=== PATIENT | female | born 1935 | race Caucasian/White ===

== ENCOUNTER 2017-12-06 20:28 | Emergency (ER) | payer MEDICARE, OTHER, BC ==
[~2017-12-06 20:28] MED LIST: Iopamidol 370 76% 125 ML VIAL FS ONE
--- NOTE | 2017-12-06 21:04 | RAD ---
RADIOGRAPH CHEST 2 VIEWS: 12/06/17 HISTORY: 82-year-old female with acute chest pain. FINDINGS: There is no air space density, pulmonary edema, pleural effusion, pneumothorax, or cardiomegaly. IMPRESSION: No acute cardiopulmonary findings. geo [] POS: [facility]
[2017-12-06 21:09] LABS: ALT (SGPT) 18 U/L (8-55); AST (SGOT) 14 U/L (5-34); Albumin 3.9 g/dL (3.4-4.8); Alkaline Phosphatase 93 U/L (40-150); Anion Gap 16 mmol/L (10-20); BUN (Urea Nitrogen) 28 mg/dL (9.8-20.1); Bilirubin, Total 0.3 mg/dL (0.2-1.2); CK (CPK) 103 U/L (29-168); Calc. Creatinine Clearance 0 mL/min (70-130); Calcium 9.9 mg/dL (7.8-10.44); Carbon Dioxide 23 mmol/L (23-31); Chloride 105 mmol/L (98-107); Estimated GFR-MDRD 67; Globulin 3.1 g/dL (2.4-3.5); Glucose 99 mg/dL (83-110); Potassium 4.6 mmol/L (3.5-5.1); Sodium 139 mmol/L (136-145)
[2017-12-06 21:10] LABS: CKMB 2.1 ng/mL (0-6.6); Troponin I Less than 0.010 ng/mL (< 0.028)
[2017-12-06 21:11] LABS: #Basophils 0.1 thou/uL (0.0-0.2); #Eosinphils 0.4 thou/uL (0.0-0.7); #Lymphocytes 2.7 thou/uL (1.20-3.40); #Monocytes 0.9 thou/uL (0.11-0.59); #Neutrophils 5.4 thou/uL (1.40-6.50); %Basophils 0.7 % (0.0-1.0); %Eosinophils 4.4 % (0.0-10.0); %Lymphocytes 28.3 % (21.0-51.0); %Monocytes 9.5 % (0.0-10.0); Hemoglobin 12.4 g/dL (12.0-16.0); Mean Corpuscular HGB CONC 32.7 g/dL (32.0-36.0); Mean Corpuscular Hemoglobin 30.2 pg (27.0-31.0); Mean Corpuscular Volume 92.3 fL (78.0-98.0); Mean Platelet Volume 9.9 fL (7.4-10.4); Platelet Count 158 thou/uL (130-400); RBC Distribution Width 12.8 % (11.5-14.5); White Blood Cell (WBC) Count 9.4 thou/uL (4.8-10.8)
[2017-12-06] MEDS ORDERED: Acetaminophen 500 MG TAB ONE (21:14)
--- NOTE | 2017-12-06 22:43 | CT ---
CTA THORAX WITH CONTRAST: DATE: 12/06/17 TIME: 10:11 p.m. (Computed Tomographic Angiography, chest(noncoronary) with contrast material, and image postprocessin g) (PE protocol) HISTORY: 82-year-old female with elevated D-dimer and dyspnea. TECHNIQUE: IV injection of iodinated contrast: Injected. Scan acquisition timing attempted to coincide with iodinated contrast bolus reaching maximal density in pulmonary arteries. 3D MIP reconstructions. FINDINGS: No thoracic aortic aneurysm. No pulmonary thromboembolism identified. Peripheral branches are somewha t difficult to evaluate because of breathing motion artifact. Diffuse mild interstitial densities anuj aterally, especially in the lower lobes, are at least in part due to patient breathing motion artifac t. No consolidation, pleural effusion, pneumothorax, or pulmonary mass. No thoracic aortic dissection , aneurysm, or rupture. No mediastinal or hilar lymphadenopathy. Flowing bridging osteophytes through out all levels of the thoracic spine. Left renal cyst. IMPRESSION: 1. No evidence of pulmonary thromboembolism. 2. DISH (diffuse idiopathic skeletal hyperostosis). geo[] POS: [facility]
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
[2017-12-06 23:22] LABS: CKMB 1.8 ng/mL (0-6.6); Troponin I Less than 0.010 ng/mL (< 0.028)
== END 2017-12-06 23:58 | disposition home or self-care (01) ==
LOC: MADERS 20:28
DX: R07.89 Other chest pain (principal); R51 Headache; R20.2 Paresthesia of skin; I10 Essential (primary) hypertension
CPT/HCPCS: 36415; 70450; 71046; 71275; 80053; 82550; 82553; 83880; 84484; 85025; 85379; 93005

== ENCOUNTER 2018-03-03 20:26 | Emergency (ER) | payer MEDICARE, OTHER, BC ==
[2018-03-03] MEDS ORDERED: Amlodipine 5 MG TAB ONE (20:42)
[2018-03-03] MEDS ORDERED: Lisinopril 10 MG TAB ONE (20:42)
== END 2018-03-03 21:20 | disposition home or self-care (01) ==
LOC: MADERS 20:26
DX: I10 Essential (primary) hypertension (principal); Z79.899 Other long term (current) drug therapy
CPT/HCPCS: 99283

== ENCOUNTER 2018-03-08 11:45 | Outpatient (CLI) | payer MEDICARE, OTHER, BC ==
--- NOTE | 2018-03-08 13:34 | RAD ---
CHEST TWO VIEWS: 03/08/2018 HISTORY: Wheezing. Respiratory distress. COMPARISON: 12/06/2017 TECHNIQUE: PA and lateral views of the chest are obtained. FINDINGS: Two views of the chest demonstrate mild cardiomegaly and pulmonary vascular congestion. No evidence of effusions, pneumonia, or pneumothorax is seen. IMPRESSION: Mild pulmonary vascular congestion; otherwise, unremarkable two views chest. POS: [facility]
== END 2018-03-08 11:46 | disposition home or self-care (01) ==
LOC: MADRAD 11:45
PROVIDERS: ATTEND Physician Assistant
DX: R06.2 Wheezing (principal); R09.89 Other specified symptoms and signs involving the circulatory and respiratory systems
CPT/HCPCS: 71046

== ENCOUNTER 2018-03-09 11:23 | Emergency (ER) | payer MEDICARE, OTHER, BC ==
[~2018-03-09 11:23] MED LIST changes: +Sodium Chloride 0.9% 100 ML BAG ONE
[2018-03-09 12:24] LABS: #Basophils 0.1 thou/uL (0.0-0.2); #Eosinphils 0.4 thou/uL (0.0-0.7); #Lymphocytes 1.4 thou/uL (1.20-3.40); #Monocytes 1.3 thou/uL (0.11-0.59); #Neutrophils 10.1 thou/uL (1.40-6.50); %Basophils 0.7 % (0.0-1.0); %Lymphocytes 10.2 % (21.0-51.0); %Monocytes 10.1 % (0.0-10.0); %Neutrophils 75.9 % (42.0-75.0); Hemoglobin 13.3 g/dL (12.0-16.0); Mean Corpuscular HGB CONC 32.5 g/dL (32.0-36.0); Mean Corpuscular Hemoglobin 30.7 pg (27.0-31.0); Mean Corpuscular Volume 94.6 fL (78.0-98.0); Platelet Count 216 thou/uL (130-400); RBC Distribution Width 12.4 % (11.5-14.5); Red Blood Cell (RBC) Count 4.32 mill/uL (4.20-5.40); White Blood Cell (WBC) Count 13.3 thou/uL (4.8-10.8)
--- NOTE | 2018-03-09 12:29 | RAD ---
PORTABLE AP CHEST XRAY: DATE: 03/09/18. HISTORY: Dyspnea. COMPARISON: 03/08/18. FINDINGS: There is suboptimal evaluation of the lung bases due to overlying soft tissue density in the techniqu e of the exam. However, the lungs appear grossly clear. Cardiac silhouette and pulmonary vasculatur e are within normal limits for the portable technique of the study. There has been no interval medrano e from the prior exam. IMPRESSION: No acute cardiopulmonary process. POS: [facility]
[2018-03-09 12:39] LABS: ALT (SGPT) 22 U/L (8-55); AST (SGOT) 18 U/L (5-34); Alkaline Phosphatase 94 U/L (40-150); Anion Gap 16 mmol/L (10-20); BUN (Urea Nitrogen) 35 mg/dL (9.8-20.1); Bilirubin, Total 0.4 mg/dL (0.2-1.2); CK (CPK) 77 U/L (29-168); Calc. Creatinine Clearance 0 mL/min (70-130); Carbon Dioxide 22 mmol/L (23-31); Chloride 105 mmol/L (98-107); Estimated GFR-MDRD 46; Globulin 3.1 g/dL (2.4-3.5); Glucose 122 mg/dL (83-110); Potassium 4.9 mmol/L (3.5-5.1); Protein, Total 7.1 g/dL (6.0-8.3); Sodium 138 mmol/L (136-145)
[2018-03-09 12:40] LABS: CKMB 1.3 ng/mL (0-6.6); Troponin I 0.011 ng/mL (< 0.028)
--- NOTE | 2018-03-09 14:21 | CT ---
CT ANGIOGRAM NECK WITH IV CONTRAST AND 3D RECONSTRUCTIONS: DATE: 03/09/18. HISTORY: Dyspnea, cough, shortness of breath. COMPARISON: 12/06/17. FINDINGS: No filling defects are seen in the pulmonary arteries to suggest a pulmonary embolus. Vascular calcifications are seen in the coronary arteries as well as involving the thoracic aorta. T he thoracic aorta is normal in caliber without evidence of an aortic dissection. Mediastinal structures have a normal appearance. No lymphadenopathy is seen. There is a patchy area of focal consolidation seen within the left lower lobe which may be related to focal area of pneumonia/pneumonitis. The lungs are otherwise clear. Superior pole left renal cyst is again seen and incompletely imaged on the current study. Subcentime ter too small to characterize hypodense lesions are also again seen in the superior pole of each kidn ey. Degenerative changes are again present in the spine with bridging osteophytes seen at all levels of t he thoracic spine. IMPRESSION: 1. Focal area of consolidation in the left lower lobe. While this could be related to an area of ro unded atelectasis, findings are worrisome for either focal area of pneumonia/pneumonitis, and followu p to resolution is recommended. 2. No CT evidence of a pulmonary embolus. There is a filling defect seen within the IVC at the leve l of the renal veins, but this is likely attributable to mixing artifact and is incompletely imaged o r evaluating. 3. Small hiatal hernia. 4. Hypodense superior pole bilateral renal lesions incompletely imaged or evaluated but stable from prior study and likely related to cysts. POS: [facility]
== END 2018-03-09 15:13 | disposition home or self-care (01) ==
LOC: MADERS 11:23
DX: J18.9 Pneumonia, unspecified organism (principal); I10 Essential (primary) hypertension; Z79.899 Other long term (current) drug therapy
CPT/HCPCS: 71045; 71275; 80053; 82550; 82553; 83880; 84484; 85025; 85379; 87804; 93005; J7050

== ENCOUNTER 2019-04-14 19:43 | Inpatient (IN) | payer MEDICARE, OTHER ==
[2019-04-14] MEDS ORDERED: Calcium Carbonate 500 MG ChewTAB PO PRN (20:46)
[2019-04-14] MEDS: Ibuprofen 600 MG TAB PO PRN (21:02)
[2019-04-14] MEDS: Cyclobenzaprine 10 MG TAB PO PRN (21:02)
[2019-04-14] MEDS: Senokot S 8.6-50 MG TAB PO SCH (21:02)
[2019-04-14] MEDS: Gabapentin 300 MG CAP PO SCH (21:03)
[2019-04-14] MEDS: guaiFENesin/Codeine Phosphate 100 mg/10 mg 5 ml UD Cup PO PRN (22:28)
[2019-04-14] MEDS ORDERED: Acetylcysteine 20% 200 MG/ML 30 ML VIAL ONE ×2 (23:17)
[2019-04-14] MEDS: Acetylcysteine 20% 200 MG/ML 30 ML VIAL INH SCH (23:43)
[2019-04-14] MEDS: Acetaminophen 325 MG TAB PO SCH (23:44)
[2019-04-15] MEDS: Ibuprofen 600 MG TAB PO PRN (03:27)
[2019-04-15] MEDS: Acetaminophen 325 MG TAB PO SCH ×4 (05:18→23:04)
[2019-04-15] MEDS ORDERED: Acetylcysteine 20% 200 MG/ML 30 ML VIAL ONE ×2 (05:50)
[2019-04-15] MEDS: Acetylcysteine 20% 200 MG/ML 30 ML VIAL INH SCH ×2 (05:57→12:34)
[2019-04-15] MEDS: Polyethylene Glycol 3350 17 GM Packet PO SCH (09:36)
[2019-04-15] MEDS: Lisinopril 10 MG TAB PO SCH (09:37)
[2019-04-15] MEDS: Senokot S 8.6-50 MG TAB PO SCH ×2 (09:38→20:47)
[2019-04-15] MEDS: Aspirin 81 mg Enteric Coated Tablet PO SCH (09:38)
[2019-04-15] MEDS: Gabapentin 300 MG CAP PO SCH ×2 (09:38→20:47)
[2019-04-15] MEDS ORDERED: Ondansetron ODT 4 MG TAB PO PRN (13:56)
[2019-04-15] MEDS: Nystatin Powder 15 GM BOT TOP PRN (17:31)
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
[2019-04-15] MEDS: guaiFENesin/Codeine Phosphate 100 mg/10 mg 5 ml UD Cup PO PRN (23:10)
[2019-04-16] MEDS: Acetaminophen 325 MG TAB PO SCH ×3 (05:05→17:27)
[2019-04-16] MEDS: Polyethylene Glycol 3350 17 GM Packet PO SCH (08:47)
[2019-04-16] MEDS: Aspirin 81 mg Enteric Coated Tablet PO SCH (08:48)
[2019-04-16] MEDS: Gabapentin 300 MG CAP PO SCH ×2 (08:48→20:48)
[2019-04-16] MEDS: Senokot S 8.6-50 MG TAB PO SCH ×2 (08:48→20:48)
[2019-04-16] MEDS: Lisinopril 10 MG TAB PO SCH (08:48)
[2019-04-16] MEDS: guaiFENesin/Codeine Phosphate 100 mg/10 mg 5 ml UD Cup PO PRN ×2 (09:10→20:49)
[2019-04-16] MEDS: Ibuprofen 600 MG TAB PO PRN (20:49)
[2019-04-17] MEDS: Acetaminophen 325 MG TAB PO SCH ×5 (00:20→23:11)
[2019-04-17] MEDS: Lisinopril 10 MG TAB PO SCH (08:28)
[2019-04-17] MEDS: Senokot S 8.6-50 MG TAB PO SCH ×2 (08:28→20:54)
[2019-04-17] MEDS: Gabapentin 300 MG CAP PO SCH ×2 (08:28→20:54)
[2019-04-17] MEDS: Polyethylene Glycol 3350 17 GM Packet PO SCH (08:29)
[2019-04-17] MEDS: Aspirin 81 mg Enteric Coated Tablet PO SCH (08:29)
[2019-04-17 10:27] VITALS: BMI 42.8
[2019-04-17] MEDS: Nystatin 500,000 UNITS/5 ML UDCUP SSW SCH ×3 (12:58→20:55)
[2019-04-17] MEDS: Cyclobenzaprine 10 MG TAB PO PRN (23:12)
[2019-04-18] MEDS: Ibuprofen 600 MG TAB PO PRN (00:45)
[2019-04-18] MEDS: Acetaminophen 325 MG TAB PO SCH ×3 (05:25→17:43)
[2019-04-18] MEDS: Polyethylene Glycol 3350 17 GM Packet PO SCH (08:40)
[2019-04-18] MEDS: Aspirin 81 mg Enteric Coated Tablet PO SCH (08:41)
[2019-04-18] MEDS: Gabapentin 300 MG CAP PO SCH ×2 (08:41→21:29)
[2019-04-18] MEDS: Lisinopril 10 MG TAB PO SCH (08:41)
[2019-04-18] MEDS: Senokot S 8.6-50 MG TAB PO SCH ×2 (08:41→21:30)
[2019-04-18] MEDS: Nystatin 500,000 UNITS/5 ML UDCUP SSW SCH ×4 (08:44→21:30)
[2019-04-18] MEDS: traMADol HCl 50 MG TAB PO PRN (21:32)
[2019-04-19] MEDS: Acetaminophen 325 MG TAB PO SCH ×3 (01:56→09:14)
[2019-04-19] MEDS: guaiFENesin/Codeine Phosphate 100 mg/10 mg 5 ml UD Cup PO PRN ×2 (02:35→21:53)
[2019-04-19] MEDS: traMADol HCl 50 MG TAB PO PRN ×3 (05:25→21:53)
--- NOTE | 2019-04-19 07:52 | RAD ---
XR Chest 1 View Portable History: Pneumonia Comparison: Chest radiograph April 10, 2019 Findings: Improved aeration right lower lobe. Heart size upper limits of normal. No pneumothorax. No significant effusion. Impression: Improved aeration right lower lobe pneumonia.
[2019-04-19] MEDS: Gabapentin 300 MG CAP PO SCH ×2 (09:13→20:34)
[2019-04-19] MEDS: Lisinopril 10 MG TAB PO SCH (09:13)
[2019-04-19] MEDS: Multivitamin W/ Minerals 1 TAB PO SCH (09:13)
[2019-04-19] MEDS: Nystatin 500,000 UNITS/5 ML UDCUP SSW SCH ×4 (09:13→20:34)
[2019-04-19] MEDS: Aspirin 81 mg Enteric Coated Tablet PO SCH (09:13)
[2019-04-19] MEDS: Senokot S 8.6-50 MG TAB PO SCH ×2 (09:15→20:34)
[2019-04-19] MEDS: Polyethylene Glycol 3350 17 GM Packet PO SCH (09:15)
[2019-04-19] MEDS ORDERED: Acetaminophen 325 MG TAB PO PRN (13:09)
[2019-04-20] MEDS: Ibuprofen 600 MG TAB PO PRN ×2 (01:12→13:13)
[2019-04-20] MEDS: Cepastat Lozenges 1 LOZ PO PRN ×2 (01:13→13:13)
[2019-04-20] MEDS: Multivitamin W/ Minerals 1 TAB PO SCH (08:15)
[2019-04-20] MEDS: Nystatin 500,000 UNITS/5 ML UDCUP SSW SCH ×4 (08:15→20:55)
[2019-04-20] MEDS: Lisinopril 10 MG TAB PO SCH (08:15)
[2019-04-20] MEDS: Polyethylene Glycol 3350 17 GM Packet PO SCH (08:15)
[2019-04-20] MEDS: Gabapentin 300 MG CAP PO SCH ×2 (08:16→20:55)
[2019-04-20] MEDS: Aspirin 81 mg Enteric Coated Tablet PO SCH (08:16)
[2019-04-20] MEDS: Senokot S 8.6-50 MG TAB PO SCH ×2 (08:16→20:55)
[2019-04-20] MEDS: traMADol HCl 50 MG TAB PO PRN (20:55)
[2019-04-21] MEDS: guaiFENesin/Codeine Phosphate 100 mg/10 mg 5 ml UD Cup PO PRN (01:07)
[2019-04-21] MEDS: Lisinopril 10 MG TAB PO SCH (09:49)
[2019-04-21] MEDS: Multivitamin W/ Minerals 1 TAB PO SCH (09:49)
[2019-04-21] MEDS: Polyethylene Glycol 3350 17 GM Packet PO SCH (09:50)
[2019-04-21] MEDS: Senokot S 8.6-50 MG TAB PO SCH ×2 (09:50→20:37)
[2019-04-21] MEDS: Gabapentin 300 MG CAP PO SCH ×2 (09:50→20:37)
[2019-04-21] MEDS: Aspirin 81 mg Enteric Coated Tablet PO SCH (09:50)
[2019-04-21] MEDS: Nystatin 500,000 UNITS/5 ML UDCUP SSW SCH ×4 (09:50→20:37)
[2019-04-21] MEDS: Ibuprofen 600 MG TAB PO PRN (12:31)
[2019-04-21] MEDS: Nystatin Powder 15 GM BOT TOP PRN (13:43)
[2019-04-22] MEDS: traMADol HCl 50 MG TAB PO PRN (01:08)
[2019-04-22] MEDS: Cyclobenzaprine 10 MG TAB PO PRN ×2 (01:08→20:10)
[2019-04-22] MEDS: Ibuprofen 600 MG TAB PO PRN (02:18)
[2019-04-22] MEDS: Aspirin 81 mg Enteric Coated Tablet PO SCH (08:18)
[2019-04-22] MEDS: Multivitamin W/ Minerals 1 TAB PO SCH (08:18)
[2019-04-22] MEDS: Lisinopril 10 MG TAB PO SCH (08:18)
[2019-04-22] MEDS: Nystatin 500,000 UNITS/5 ML UDCUP SSW SCH ×4 (08:18→20:08)
[2019-04-22] MEDS: Senokot S 8.6-50 MG TAB PO SCH ×2 (08:18→20:07)
[2019-04-22] MEDS: Gabapentin 300 MG CAP PO SCH ×2 (08:19→20:08)
[2019-04-22] MEDS: Polyethylene Glycol 3350 17 GM Packet PO SCH (08:19)
[2019-04-22] MEDS ORDERED: Polyethylene Glycol 3350 17 GM Packet PO PRN (21:34)
[2019-04-23] MEDS: Nystatin 500,000 UNITS/5 ML UDCUP SSW SCH ×4 (08:49→20:59)
[2019-04-23] MEDS: Ibuprofen 600 MG TAB PO PRN (08:49)
[2019-04-23] MEDS: Lisinopril 10 MG TAB PO SCH (08:49)
[2019-04-23] MEDS: Multivitamin W/ Minerals 1 TAB PO SCH (08:49)
[2019-04-23] MEDS: Gabapentin 300 MG CAP PO SCH ×2 (08:49→20:59)
[2019-04-23] MEDS: Aspirin 81 mg Enteric Coated Tablet PO SCH (08:50)
[2019-04-23] MEDS: traMADol HCl 50 MG TAB PO PRN (21:05)
[2019-04-24] MEDS: Cyclobenzaprine 10 MG TAB PO PRN (00:42)
[2019-04-24] MEDS: Ibuprofen 600 MG TAB PO PRN ×3 (00:42→22:03)
[2019-04-24] MEDS: traMADol HCl 50 MG TAB PO PRN (03:21)
[2019-04-24] MEDS: Gabapentin 300 MG CAP PO SCH ×2 (08:27→22:03)
[2019-04-24] MEDS: Lisinopril 10 MG TAB PO SCH (08:27)
[2019-04-24] MEDS: Multivitamin W/ Minerals 1 TAB PO SCH (08:27)
[2019-04-24] MEDS: Nystatin 500,000 UNITS/5 ML UDCUP SSW SCH ×5 (08:27→22:06)
[2019-04-24] MEDS: Aspirin 81 mg Enteric Coated Tablet PO SCH (08:27)
[2019-04-25] MEDS: Gabapentin 300 MG CAP PO SCH ×2 (08:13→21:26)
[2019-04-25] MEDS: Aspirin 81 mg Enteric Coated Tablet PO SCH (08:13)
[2019-04-25] MEDS: Lisinopril 10 MG TAB PO SCH (08:13)
[2019-04-25] MEDS: Multivitamin W/ Minerals 1 TAB PO SCH (08:14)
[2019-04-25] MEDS: Nystatin 500,000 UNITS/5 ML UDCUP SSW SCH (08:14)
[2019-04-25] MEDS: Nystatin Powder 15 GM BOT TOP PRN (14:17)
[2019-04-25] MEDS: Ibuprofen 600 MG TAB PO PRN (21:26)
[2019-04-25] MEDS: Cyclobenzaprine 10 MG TAB PO PRN (21:26)
[2019-04-26] MEDS: traMADol HCl 50 MG TAB PO PRN ×2 (01:58→21:33)
[2019-04-26] MEDS: Lisinopril 10 MG TAB PO SCH (08:36)
[2019-04-26] MEDS: Multivitamin W/ Minerals 1 TAB PO SCH (08:36)
[2019-04-26] MEDS: Aspirin 81 mg Enteric Coated Tablet PO SCH (08:36)
[2019-04-26] MEDS: Gabapentin 300 MG CAP PO SCH ×2 (08:36→21:33)
[2019-04-27] MEDS: Multivitamin W/ Minerals 1 TAB PO SCH (08:35)
[2019-04-27] MEDS: Lisinopril 10 MG TAB PO SCH (08:35)
[2019-04-27] MEDS: Aspirin 81 mg Enteric Coated Tablet PO SCH (08:35)
[2019-04-27] MEDS: Gabapentin 300 MG CAP PO SCH ×2 (08:36→21:02)
[2019-04-27] MEDS: Ibuprofen 600 MG TAB PO PRN (21:02)
[2019-04-28] MEDS: Lisinopril 10 MG TAB PO SCH (10:07)
[2019-04-28] MEDS: Multivitamin W/ Minerals 1 TAB PO SCH (10:07)
[2019-04-28] MEDS: Aspirin 81 mg Enteric Coated Tablet PO SCH (10:07)
[2019-04-28] MEDS: Gabapentin 300 MG CAP PO SCH ×2 (10:08→20:25)
[2019-04-29 07:06] VITALS: TEMP 96.9
[2019-04-29 10:36] VITALS: BP 149/67
[2019-04-29] MEDS: Aspirin 81 mg Enteric Coated Tablet PO SCH (10:36)
[2019-04-29] MEDS: Gabapentin 300 MG CAP PO SCH (10:36)
[2019-04-29] MEDS: Multivitamin W/ Minerals 1 TAB PO SCH (10:36)
[2019-04-29] MEDS: Lisinopril 10 MG TAB PO SCH (10:36)
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
== END 2019-04-29 11:55 | disposition home or self-care (01) | DRG 947 ==
LOC: UNDOADMIN 19:43 → MADMS 19:43
PROVIDERS: ADMIT Family Medicine; ATTEND Family Medicine
DX: R53.81 Other malaise (principal); J69.0 Pneumonitis due to inhalation of food and vomit; B37.0 Candidal stomatitis; I25.10 Atherosclerotic heart disease of native coronary artery without angina pectoris; I10 Essential (primary) hypertension; Z95.5 Presence of coronary angioplasty implant and graft; Z90.49 Acquired absence of other specified parts of digestive tract; Z96.653 Presence of artificial knee joint, bilateral; Z79.899 Other long term (current) drug therapy; Z88.0 Allergy status to penicillin; S32.030D Wedge compression fracture of third lumbar vertebra, subsequent encounter for fracture with routine healing; W01.198D Fall on same level from slipping, tripping and stumbling with subsequent striking against other object, subsequent encounter
CPT/HCPCS: 71045; 94640; J7608; J7620

== ENCOUNTER 2019-06-05 09:39 | Outpatient (CLI) | payer MEDICARE, OTHER ==
--- NOTE | 2019-06-05 10:01 | RAD ---
XR Lumbar Spine 2 Or 3 View: 06/05/2019 9:44 AM L3 vertebral body fracture COMPARISON: Lumbar spine CT dated 04/07/2019 FINDINGS: Fracture: The known anterior superior vertebral body fracture of L3 appears stable in position. The f racture lucency is less prominent likely indicative of some interval healing. Alignment: Grade 1 anterolisthesis of L4 on L5 with retrolisthesis of L2 on L3 and L1 and L2 is stabl e. Degenerative Change: Severe spondylosis of the lumbar spine is stable Soft tissues: Surgical clips in the right upper quadrant are stable. IMPRESSION: Progressive healing without evidence of displacement involving the right anterior lateral superior vertebral body fracture of L3.
== END 2019-06-05 09:40 | disposition home or self-care (01) ==
LOC: MADRAD 09:39
PROVIDERS: ATTEND Neurological Surgery
DX: S32.039D Unspecified fracture of third lumbar vertebra, subsequent encounter for fracture with routine healing (principal)
CPT/HCPCS: 72100

== ENCOUNTER 2020-02-11 08:58 | Emergency (ER) | payer MEDICARE, OTHER ==
--- NOTE | 2020-02-11 09:37 | RAD ---
Exam: Chest one view HISTORY:Chest pain Comparison: 04/19/2019 FINDINGS: Cardiac silhouette:Cardiomegaly Aorta: Unremarkable Pulmonary vessels: Normal Costophrenic angles: Clear LUNGS: No masses or consolidation. Pneumothorax: None Osseous abnormalities: None IMPRESSION: No acute cardiopulmonary process.
[2020-02-11 09:40] LABS: #Basophils 0.1 thou/uL (0.0-0.2); #Eosinphils 0.3 thou/uL (0.0-0.7); #Monocytes 0.8 thou/uL (0.11-0.59); #Neutrophils 4.6 thou/uL (1.40-6.50); %Basophils 0.9 % (0.0-1.0); %Eosinophils 4.4 % (0.0-10.0); %Lymphocytes 25.9 % (21.0-51.0); %Monocytes 10.7 % (0.0-10.0); %Neutrophils 58.2 % (42.0-75.0); Hemoglobin 12.6 g/dL (12.0-16.0); MDiff Complete? YES; Manual Diff?? NO; Mean Corpuscular HGB CONC 29.9 g/dL (32.0-36.0); Mean Corpuscular Hemoglobin 28.5 pg (27.0-31.0); Mean Corpuscular Volume 95.3 fL (78.0-98.0); Mean Platelet Volume 9.5 fL (7.4-10.4); Platelet Count 196 thou/uL (130-400); RBC Distribution Width 14.9 % (11.5-14.5); Red Blood Cell (RBC) Count 4.43 mill/uL (4.20-5.40); White Blood Cell (WBC) Count 7.8 thou/uL (4.8-10.8)
[2020-02-11 09:52] LABS: ALT (SGPT) 26 U/L (8-55); AST (SGOT) 17 U/L (5-34); Albumin 3.8 g/dL (3.4-4.8); Alkaline Phosphatase 98 U/L (40-110); Anion Gap 14 mmol/L (10-20); BUN (Urea Nitrogen) 30 mg/dL (9.8-20.1); Bilirubin, Total 0.3 mg/dL (0.2-1.2); CK (CPK) 111 U/L (29-168); Calc. Creatinine Clearance 0 mL/min (70-130); Calcium 9.6 mg/dL (7.8-10.44); Carbon Dioxide 25 mmol/L (23-31); Chloride 107 mmol/L (98-107); Estimated GFR-MDRD 48; Globulin 3.3 g/dL (2.4-3.5); Glucose 107 mg/dL (83-110); Lipase 44 U/L (8-78); Potassium 4.9 mmol/L (3.5-5.1); Protein, Total 7.1 g/dL (6.0-8.3); Sodium 141 mmol/L (136-145)
[2020-02-11] MEDS ORDERED: Nitroglycerin 2% Ointment 1 INCH/1 GM Packet ONE (10:30)
== END 2020-02-11 13:20 | disposition short-term general hospital (02) ==
LOC: MADERS 08:58
DX: R07.9 Chest pain, unspecified (principal); I49.3 Ventricular premature depolarization; I25.10 Atherosclerotic heart disease of native coronary artery without angina pectoris; I10 Essential (primary) hypertension; Z79.82 Long term (current) use of aspirin; Z79.899 Other long term (current) drug therapy
CPT/HCPCS: 36415; 71045; 80053; 82550; 83690; 84484; 85025; 93005

== ENCOUNTER 2020-03-06 18:55 | Emergency (ER) | payer MEDICARE, OTHER, BC ==
[2020-03-06] MEDS ORDERED: predniSONE 20 MG TAB ONE (20:09)
[2020-03-06] MEDS ORDERED: diphenhydrAMINE 25 MG CAP ONE (20:09)
== END 2020-03-06 21:21 | disposition home or self-care (01) ==
LOC: MADERS 18:55
DX: T78.40XA Allergy, unspecified, initial encounter (principal); I73.9 Peripheral vascular disease, unspecified; I25.10 Atherosclerotic heart disease of native coronary artery without angina pectoris; I10 Essential (primary) hypertension; Z79.82 Long term (current) use of aspirin; Z79.899 Other long term (current) drug therapy
CPT/HCPCS: 99282; J7512; Q0163

== ENCOUNTER 2021-07-07 18:05 | Emergency (ER) | payer BC, OTHER ==
[2021-07-07 19:45] LABS: ALT (SGPT) 23 U/L (8-55); AST (SGOT) 19 U/L (5-34); Alkaline Phosphatase 81 U/L (40-110); Anion Gap 15 mmol/L (10-20); BUN (Urea Nitrogen) 47 mg/dL (9.8-20.1); Bilirubin, Total 0.3 mg/dL (0.2-1.2); Calc. Creatinine Clearance 0 mL/min (70-130); Carbon Dioxide 25 mmol/L (23-31); Chloride 106 mmol/L (98-107); Globulin 3.6 g/dL (2.4-3.5); Glucose 96 mg/dL (83-110); Potassium 4.9 mmol/L (3.5-5.1); Protein, Total 7.6 g/dL (5.8-8.1); Sodium 141 mmol/L (136-145)
[2021-07-07 19:59] LABS: #Basophils 0.1 thou/uL (0.0-0.2); #Eosinphils 0.3 thou/uL (0.0-0.7); #Lymphocytes 2.2 thou/uL (1.20-3.40); #Monocytes 0.7 thou/uL (0.11-0.59); #Neutrophils 5.4 thou/uL (1.40-6.50); %Basophils 0.7 % (0.0-1.0); %Eosinophils 3.7 % (0.0-10.0); %Lymphocytes 25.2 % (21.0-51.0); %Monocytes 8.5 % (0.0-10.0); %Neutrophils 61.8 % (42.0-75.0); Hemoglobin 13.9 g/dL (12.0-16.0); Mean Corpuscular HGB CONC 30.5 g/dL (32.0-36.0); Mean Corpuscular Hemoglobin 30.6 pg (27.0-31.0); Mean Corpuscular Volume 100.3 fL (78.0-98.0); Mean Platelet Volume 8.5 fL (7.4-10.4); Platelet Count 158 thou/uL (130-400); RBC Distribution Width 13.6 % (11.5-14.5); Red Blood Cell (RBC) Count 4.53 mill/uL (4.20-5.40); White Blood Cell (WBC) Count 8.7 thou/uL (4.8-10.8)
[2021-07-08 14:42] LABS: SARS-CoV-2 PCR by NAA Not Detected (NotDetected)
== END 2021-07-07 21:07 | disposition home or self-care (01) ==
LOC: MADERS 18:05
DX: R51.9 Headache, unspecified (principal); I10 Essential (primary) hypertension; Z20.822 Contact with and (suspected) exposure to COVID-19; Z79.82 Long term (current) use of aspirin; Z79.899 Other long term (current) drug therapy
CPT/HCPCS: 36415; 71045; 80053; 84484; 85025; 87804; 93005; U0003; U0005

== ENCOUNTER 2022-05-14 17:32 | Emergency (ER) | payer MEDICARE, BC ==
[2022-05-14] MEDS ORDERED: traMADol HCl 50 MG TAB ONE (19:22)
[2022-05-14] MEDS ORDERED: Morphine 4 MG/ML VIAL ONE (19:22)
[2022-05-14 19:47] LABS: #Basophils 0.1 thou/uL (0.0-0.2); #Eosinphils 0.1 thou/uL (0.0-0.7); #Lymphocytes 1.7 thou/uL (1.20-3.40); #Monocytes 0.9 thou/uL (0.11-0.59); #Neutrophils 11.2 thou/uL (1.40-6.50); %Basophils 0.5 % (0.0-1.0); %Eosinophils 0.7 % (0.0-10.0); %Lymphocytes 12.1 % (21.0-51.0); %Monocytes 6.5 % (0.0-10.0); %Neutrophils 80.2 % (42.0-75.0); Hemoglobin 13.3 g/dL (12.0-16.0); Mean Corpuscular HGB CONC 32.1 g/dL (32.0-36.0); Mean Corpuscular Hemoglobin 31.7 pg (27.0-31.0); Mean Corpuscular Volume 98.7 fl (78.0-98.0); Mean Platelet Volume 9.6 fL (7.4-10.4); Platelet Count 164 10x3/uL (130-400); RBC Distribution Width 12.8 % (11.5-14.5); Red Blood Cell (RBC) Count 4.21 mill/uL (4.20-5.40)
[2022-05-14 20:08] LABS: ALT (SGPT) 17 U/L (8-55); AST (SGOT) 19 U/L (5-34); Albumin 3.8 g/dL (3.4-4.8); Alkaline Phosphatase 84 U/L (40-110); Anion Gap 16 mmol/L (10-20); BUN (Urea Nitrogen) 32 mg/dL (9.8-20.1); Bilirubin, Total 0.4 mg/dL (0.2-1.2); CK (CPK) 246 U/L (29-168); Calc. Creatinine Clearance 0 mL/min (70-130); Calcium 10.5 mg/dL (7.8-10.44); Carbon Dioxide 22 mmol/L (23-31); Chloride 106 mmol/L (98-107); Estimated GFR 50; Globulin 3.8 g/dL (2.4-3.5); Glucose 129 mg/dL (83-110); Magnesium 1.7 mg/dL (1.6-2.6); Potassium 4.4 mmol/L (3.5-5.1); Protein, Total 7.6 g/dL (5.8-8.1); Sodium 140 mmol/L (136-145)
== END 2022-05-14 19:51 | disposition short-term general hospital (02) ==
LOC: MADERS 17:32
DX: S06.5XAA Traumatic subdural hemorrhage with loss of consciousness status unknown, initial encounter (principal); S06.6XAA Traumatic subarachnoid hemorrhage with loss of consciousness status unknown, initial encounter; S00.83XA Contusion of other part of head, initial encounter; I25.10 Atherosclerotic heart disease of native coronary artery without angina pectoris; I10 Essential (primary) hypertension; Z79.82 Long term (current) use of aspirin; Z79.899 Other long term (current) drug therapy; W17.89XA Other fall from one level to another, initial encounter
CPT/HCPCS: 70450; 70486; 72125; 80053; 82550; 83735; 84484; 85025; 85610; 85730; 93005; 96374; G0390; J2270

== ENCOUNTER 2022-05-20 05:03 | Emergency (ER) | payer MEDICARE, OTHER ==
[2022-05-20 05:38] LABS: #Basophils 0.1 thou/uL (0.0-0.2); #Eosinphils 0.4 thou/uL (0.0-0.7); #Lymphocytes 1.4 thou/uL (1.20-3.40); #Monocytes 0.8 thou/uL (0.11-0.59); #Neutrophils 6.3 thou/uL (1.40-6.50); %Basophils 1.2 % (0.0-1.0); %Lymphocytes 15.9 % (21.0-51.0); %Monocytes 8.9 % (0.0-10.0); Hemoglobin 12.9 g/dL (12.0-16.0); Mean Corpuscular HGB CONC 33.3 g/dL (32.0-36.0); Mean Corpuscular Hemoglobin 32.1 pg (27.0-31.0); Mean Corpuscular Volume 96.5 fl (78.0-98.0); Mean Platelet Volume 11.3 fL (7.4-10.4); Platelet Count 151 10x3/uL (130-400); RBC Distribution Width 12.8 % (11.5-14.5); White Blood Cell (WBC) Count 8.9 10x3/uL (4.8-10.8)
[2022-05-20 05:42] LABS: INR-International Normal Ratio 1.1; Prothrombin Time 14.3 sec (12.0-14.7)
[2022-05-20 05:43] LABS: PTT 33.4 sec (22.9-36.1)
[2022-05-20] MEDS ORDERED: Acetaminophen 500 MG TAB ONE (05:48)
[2022-05-20] MEDS ORDERED: Meclizine HCl 25 MG TAB ONE (05:48)
[2022-05-20 05:53] LABS: ALT (SGPT) 21 U/L (8-55); AST (SGOT) 15 U/L (5-34); Albumin 3.6 g/dL (3.4-4.8); Alkaline Phosphatase 75 U/L (40-110); Anion Gap 14 mmol/L (10-20); BUN (Urea Nitrogen) 38 mg/dL (9.8-20.1); Bilirubin, Total 0.5 mg/dL (0.2-1.2); Calc. Creatinine Clearance 0 mL/min (70-130); Calcium 10.1 mg/dL (7.8-10.44); Carbon Dioxide 21 mmol/L (23-31); Chloride 107 mmol/L (98-107); Estimated GFR 51; Globulin 3.5 g/dL (2.4-3.5); Glucose 111 mg/dL (83-110); Potassium 4.4 mmol/L (3.5-5.1); Protein, Total 7.1 g/dL (5.8-8.1); Sodium 138 mmol/L (136-145)
[2022-05-20] MEDS ORDERED: predniSONE 20 MG TAB ONE (08:14)
[2022-05-20 09:36] LABS: SARS-CoV-2 NAA Rapid Test Not Detected (NotDetected)
[2022-05-20 10:33] LABS: Bilirubin Negative (Negative); Blood, Urine Trace (Negative); Glucose, Urine (Dipstick) Negative (Negative); Ketone, Urine Negative (Negative); Leukocyte Small (Negative); Nitrite Negative (Negative); Protein, Urine (Dipstick) Negative (Neg-Trace); Urobilinogen 0.2 mg/dL (Less than 2)
[2022-05-20 10:38] LABS: Clarity Cloudy (Clear)
[2022-05-20 10:40] LABS: Bacteria/HPF 3+ HPF (None Seen); RBC/HPF 0-3 HPF (0-3); Squamous Epithelial 0-3 HPF (0-3)
[2022-05-20] MEDS ORDERED: Ciprofloxacin 500 MG TAB ONE (11:00)
== END 2022-05-20 20:47 | disposition short-term general hospital (02) ==
LOC: MADERS 05:03
DX: S06.5X0A Traumatic subdural hemorrhage without loss of consciousness, initial encounter (principal); R42 Dizziness and giddiness; J06.9 Acute upper respiratory infection, unspecified; N39.0 Urinary tract infection, site not specified; I10 Essential (primary) hypertension; W19.XXXA Unspecified fall, initial encounter; Z20.822 Contact with and (suspected) exposure to COVID-19; Z79.899 Other long term (current) drug therapy; Z79.82 Long term (current) use of aspirin
CPT/HCPCS: 70450; 71045; 80053; 81003; 81015; 85025; 85610; 85730; 87077; 87081; 87086; 87186; 87430; 87804; 93005; 94760; J7512; U0002

== ENCOUNTER 2023-03-15 13:09 | Inpatient (IN) | payer MEDICARE, OTHER ==
[2023-03-15] MEDS: Acetaminophen/Codeine 30-300mg Tablet PO SCH (17:47)
[2023-03-15] MEDS: Cyclobenzaprine 10 MG TAB PO PRN (20:31)
[2023-03-15] MEDS: predniSONE 10 MG TAB PO SCH (20:33)
[2023-03-16] MEDS: Acetaminophen/Codeine 30-300mg Tablet PO SCH ×4 (00:05→17:07)
[2023-03-16] MEDS ORDERED: Ranolazine 500 MG ER.TAB PO SCH (09:00)
[2023-03-16] MEDS: predniSONE 10 MG TAB PO SCH ×2 (09:12→20:33)
[2023-03-16] MEDS: Nystatin Cream 15 GM TUBE TOP SCH ×2 (09:14→20:34)
[2023-03-16] MEDS: Lisinopril 20 MG TAB PO SCH (09:14)
[2023-03-16] MEDS: Ranolazine 500 MG ER.TAB PO SCH (20:33)
[2023-03-16] MEDS ORDERED: Senokot S 8.6-50 MG TAB PO PRN (22:52)
[2023-03-17] MEDS: Lisinopril 20 MG TAB PO SCH (08:34)
[2023-03-17] MEDS: Ferrous Gluconate 324 MG TAB PO SCH (08:34)
[2023-03-17] MEDS: Ranolazine 500 MG ER.TAB PO SCH ×2 (08:34→20:17)
[2023-03-17] MEDS: Nystatin Cream 15 GM TUBE TOP SCH ×2 (08:35→20:17)
[2023-03-17] MEDS: Polyethylene Glycol 3350 17 GM Packet PER TUBE SCH (08:35)
[2023-03-17] MEDS: Famotidine 20 MG TAB PO SCH (08:35)
[2023-03-17] MEDS: Acetaminophen 325 MG TAB PO PRN (21:32)
[2023-03-18] MEDS: Acetaminophen/Codeine 30-300mg Tablet PO PRN (07:17)
[2023-03-18] MEDS: Ferrous Gluconate 324 MG TAB PO SCH (09:07)
[2023-03-18] MEDS: Lisinopril 20 MG TAB PO SCH (09:07)
[2023-03-18] MEDS: Famotidine 20 MG TAB PO SCH (09:07)
[2023-03-18] MEDS: Polyethylene Glycol 3350 17 GM Packet PER TUBE SCH (09:07)
[2023-03-18] MEDS: Nystatin Cream 15 GM TUBE TOP SCH ×2 (09:08→20:48)
[2023-03-18] MEDS: Ranolazine 500 MG ER.TAB PO SCH ×2 (09:08→20:44)
[2023-03-18] MEDS: Cyclobenzaprine 10 MG TAB PO PRN (20:43)
[2023-03-18] MEDS: Acetaminophen 325 MG TAB PO PRN (20:43)
[2023-03-19] MEDS: Acetaminophen/Codeine 30-300mg Tablet PO PRN (05:16)
[2023-03-19 07:25] LABS: Hematocrit 31.5 % (36.0-47.0); Hemoglobin 9.8 g/dL (12.0-16.0); Mean Corpuscular Hemoglobin 32.2 pg (27.0-31.0); RBC Distribution Width 14.9 % (11.5-14.5); Red Blood Cell (RBC) Count 3.02 mill/uL (4.20-5.40); White Blood Cell (WBC) Count 10.5 10x3/uL (4.8-10.8)
[2023-03-19 07:26] LABS: #Basophils 0.1 thou/uL (0.0-0.2); #Eosinphils 0.4 thou/uL (0.0-0.7); #Lymphocytes 2.1 thou/uL (1.20-3.40); #Monocytes 0.8 thou/uL (0.11-0.59); #Neutrophils 7.1 thou/uL (1.40-6.50); %Basophils 0.6 % (0.0-1.0); %Eosinophils 4.2 % (0.0-10.0); %Lymphocytes 19.6 % (21.0-51.0); %Monocytes 7.6 % (0.0-10.0); Mean Platelet Volume 9.1 fL (7.4-10.4); Platelet Count 246 10x3/uL (130-400)
[2023-03-19] MEDS: Famotidine 20 MG TAB PO SCH (08:23)
[2023-03-19] MEDS: Lisinopril 20 MG TAB PO SCH (08:23)
[2023-03-19] MEDS: Ranolazine 500 MG ER.TAB PO SCH ×2 (08:23→20:25)
[2023-03-19] MEDS: Polyethylene Glycol 3350 17 GM Packet PER TUBE SCH (08:23)
[2023-03-19] MEDS: Ferrous Gluconate 324 MG TAB PO SCH (08:24)
[2023-03-19] MEDS: Nystatin Cream 15 GM TUBE TOP SCH ×2 (10:09→20:25)
[2023-03-20] MEDS: Acetaminophen/Codeine 30-300mg Tablet PO PRN (03:40)
[2023-03-20] MEDS: Cyclobenzaprine 10 MG TAB PO PRN (03:41)
[2023-03-20 04:30] LABS: Bilirubin Negative (Negative); Blood, Urine Negative (Negative); Glucose, Urine (Dipstick) Negative (Negative); Ketone, Urine Negative (Negative); Leukocyte Small (Negative); Nitrite Negative (Negative); Protein, Urine (Dipstick) Negative (Neg-Trace); pH, Urine 5.5 (5.0-9.0)
[2023-03-20 04:33] LABS: Bacteria/HPF 3+ HPF (None Seen); Clarity Cloudy (Clear); RBC/HPF None Seen HPF (0-3); Squamous Epithelial 0-3 HPF (0-3); WBC/HPF 21-50 HPF (0-3)
[2023-03-20] MEDS: Polyethylene Glycol 3350 17 GM Packet PER TUBE SCH (08:25)
[2023-03-20] MEDS: Ranolazine 500 MG ER.TAB PO SCH ×2 (08:31→20:51)
[2023-03-20] MEDS: Famotidine 20 MG TAB PO SCH (08:31)
[2023-03-20] MEDS: Ferrous Gluconate 324 MG TAB PO SCH (08:31)
[2023-03-20] MEDS: Lisinopril 20 MG TAB PO SCH (08:32)
[2023-03-20] MEDS: Nystatin Cream 15 GM TUBE TOP SCH ×2 (08:33→20:52)
[2023-03-20] MEDS: Acetaminophen 325 MG TAB PO PRN (19:46)
[2023-03-20] MEDS ORDERED: Fosfomycin 3 GM/Packet PO SCH (21:15)
[2023-03-21] MEDS: Ranolazine 500 MG ER.TAB PO SCH ×2 (08:59→20:06)
[2023-03-21] MEDS: Famotidine 20 MG TAB PO SCH (08:59)
[2023-03-21] MEDS: Lisinopril 20 MG TAB PO SCH (08:59)
[2023-03-21] MEDS: Ferrous Gluconate 324 MG TAB PO SCH (08:59)
[2023-03-21] MEDS: Nystatin Cream 15 GM TUBE TOP SCH ×2 (09:00→20:06)
[2023-03-21] MEDS: Polyethylene Glycol 3350 17 GM Packet PER TUBE SCH (09:00)
[2023-03-21] MEDS: Acetaminophen/Codeine 30-300mg Tablet PO PRN (20:08)
[2023-03-22] MEDS: Ondansetron ODT 4 MG TAB PO PRN (04:49)
[2023-03-22] MEDS: Famotidine 20 MG TAB PO SCH (08:20)
[2023-03-22] MEDS: Ferrous Gluconate 324 MG TAB PO SCH (08:20)
[2023-03-22] MEDS: Lisinopril 20 MG TAB PO SCH (08:20)
[2023-03-22] MEDS: Ranolazine 500 MG ER.TAB PO SCH ×2 (08:20→20:38)
[2023-03-22] MEDS: Nystatin Cream 15 GM TUBE TOP SCH ×2 (08:22→20:38)
[2023-03-22] MEDS: Polyethylene Glycol 3350 17 GM Packet PER TUBE SCH (08:23)
[2023-03-23] MEDS: Ranolazine 500 MG ER.TAB PO SCH ×2 (09:10→20:28)
[2023-03-23] MEDS: Lisinopril 20 MG TAB PO SCH (09:12)
[2023-03-23] MEDS: Famotidine 20 MG TAB PO SCH (09:12)
[2023-03-23] MEDS: Ferrous Gluconate 324 MG TAB PO SCH (09:12)
[2023-03-23] MEDS: Polyethylene Glycol 3350 17 GM Packet PER TUBE SCH (09:13)
[2023-03-23] MEDS: Nystatin Cream 15 GM TUBE TOP SCH ×2 (09:13→20:29)
[2023-03-24] MEDS: Nystatin Cream 15 GM TUBE TOP SCH ×2 (09:09→20:40)
[2023-03-24] MEDS: Ferrous Gluconate 324 MG TAB PO SCH (09:09)
[2023-03-24] MEDS: Famotidine 20 MG TAB PO SCH ×2 (09:09→20:40)
[2023-03-24] MEDS: Ranolazine 500 MG ER.TAB PO SCH ×2 (09:10→20:40)
[2023-03-24] MEDS: Lisinopril 20 MG TAB PO SCH (09:10)
[2023-03-24] MEDS: Polyethylene Glycol 3350 17 GM Packet PER TUBE SCH (09:10)
[2023-03-24] MEDS: Ondansetron ODT 4 MG TAB PO PRN (09:17)
[2023-03-24] MEDS ORDERED: Mag-Al Plus 1200 MG/1200 MG/120 MG/30 ML UDCUP PO PRN (09:54)
[2023-03-25] MEDS: Nystatin Cream 15 GM TUBE TOP SCH ×2 (08:49→20:40)
[2023-03-25] MEDS: Famotidine 20 MG TAB PO SCH ×2 (08:50→20:39)
[2023-03-25] MEDS: Ranolazine 500 MG ER.TAB PO SCH ×2 (08:50→20:39)
[2023-03-25] MEDS: Lisinopril 20 MG TAB PO SCH (08:50)
[2023-03-25] MEDS: Ferrous Gluconate 324 MG TAB PO SCH (08:53)
[2023-03-25] MEDS: Polyethylene Glycol 3350 17 GM Packet PER TUBE SCH (08:53)
[2023-03-25] MEDS: Acetaminophen 325 MG TAB PO PRN (20:39)
[2023-03-26] MEDS: Ferrous Gluconate 324 MG TAB PO SCH (08:38)
[2023-03-26] MEDS: Lisinopril 20 MG TAB PO SCH (08:39)
[2023-03-26] MEDS: Famotidine 20 MG TAB PO SCH ×2 (08:39→20:20)
[2023-03-26] MEDS: Ranolazine 500 MG ER.TAB PO SCH ×2 (08:39→20:20)
[2023-03-26] MEDS: Polyethylene Glycol 3350 17 GM Packet PER TUBE SCH (08:39)
[2023-03-26] MEDS: Nystatin Cream 15 GM TUBE TOP SCH ×2 (08:40→20:20)
[2023-03-26] MEDS: Acetaminophen 325 MG TAB PO PRN (23:59)
[2023-03-27 05:16] LABS: Hematocrit 27.4 % (36.0-47.0); Hemoglobin 8.6 g/dL (12.0-16.0); Platelet Count 249 10x3/uL (130-400)
[2023-03-27] MEDS: Nystatin Cream 15 GM TUBE TOP SCH ×2 (09:10→20:55)
[2023-03-27] MEDS: Lisinopril 20 MG TAB PO SCH (09:10)
[2023-03-27] MEDS: Polyethylene Glycol 3350 17 GM Packet PER TUBE SCH (09:10)
[2023-03-27] MEDS: Famotidine 20 MG TAB PO SCH ×2 (09:10→20:51)
[2023-03-27] MEDS: Ferrous Gluconate 324 MG TAB PO SCH (09:10)
[2023-03-27] MEDS: Ranolazine 500 MG ER.TAB PO SCH ×2 (09:11→20:51)
[2023-03-27] MEDS: Acetaminophen 325 MG TAB PO PRN (15:13)
[2023-03-28] MEDS: Ranolazine 500 MG ER.TAB PO SCH ×2 (08:30→21:11)
[2023-03-28] MEDS: Famotidine 20 MG TAB PO SCH ×2 (08:30→21:11)
[2023-03-28] MEDS: Lisinopril 20 MG TAB PO SCH (08:30)
[2023-03-28] MEDS: Ferrous Gluconate 324 MG TAB PO SCH (08:30)
[2023-03-28] MEDS: Nystatin Cream 15 GM TUBE TOP SCH ×2 (08:32→21:12)
[2023-03-28] MEDS: Polyethylene Glycol 3350 17 GM Packet PER TUBE SCH (08:32)
[2023-03-28] MEDS ORDERED: FLU VACC QS2023(65UP)/MF59C/PF 60 MCG/0.5 ML SYRINGE IM ONE (15:00)
[2023-03-28] MEDS: Acetaminophen 325 MG TAB PO PRN (21:11)
[2023-03-29] MEDS: Ascorbic Acid 500 mg Chewable Tablet PO SCH (08:32)
[2023-03-29] MEDS: Lisinopril 20 MG TAB PO SCH (08:32)
[2023-03-29] MEDS: Vitamin E 400 UNITS CAP PO SCH (08:32)
[2023-03-29] MEDS: Cholecalciferol (Vitamin D3) 400 UNITS TAB PO SCH (08:32)
[2023-03-29] MEDS: Famotidine 20 MG TAB PO SCH ×2 (08:32→20:05)
[2023-03-29] MEDS: Ferrous Gluconate 324 MG TAB PO SCH (08:32)
[2023-03-29] MEDS: Ranolazine 500 MG ER.TAB PO SCH ×2 (08:33→20:05)
[2023-03-29] MEDS: Cyanocobalamin (Vitamin B-12) 1,000 MCG TAB PO SCH (08:33)
[2023-03-29] MEDS: Polyethylene Glycol 3350 17 GM Packet PER TUBE SCH (08:34)
[2023-03-29] MEDS: Nystatin Cream 15 GM TUBE TOP SCH ×2 (08:34→20:04)
[2023-03-29] MEDS: COD LIVER OIL PO SCH (08:35)
[2023-03-29] MEDS: VITAMIN A PO SCH (08:35)
[2023-03-29] MEDS: CHOLECALCIFEROL PO SCH (08:35)
[2023-03-29] MEDS: VITAMIN B-COMPLEX PO SCH (08:36)
[2023-03-29] MEDS: Acetaminophen 325 MG TAB PO PRN (20:05)
[2023-03-30] MEDS: Ferrous Gluconate 324 MG TAB PO SCH (09:22)
[2023-03-30] MEDS: Cholecalciferol (Vitamin D3) 400 UNITS TAB PO SCH (09:23)
[2023-03-30] MEDS: Vitamin E 400 UNITS CAP PO SCH (09:23)
[2023-03-30] MEDS: Ranolazine 500 MG ER.TAB PO SCH ×2 (09:23→20:32)
[2023-03-30] MEDS: Famotidine 20 MG TAB PO SCH ×2 (09:23→20:32)
[2023-03-30] MEDS: Ascorbic Acid 500 mg Chewable Tablet PO SCH (09:23)
[2023-03-30] MEDS: Cyanocobalamin (Vitamin B-12) 1,000 MCG TAB PO SCH (09:23)
[2023-03-30] MEDS: Lisinopril 20 MG TAB PO SCH (09:24)
[2023-03-30] MEDS: Nystatin Cream 15 GM TUBE TOP SCH ×2 (09:25→20:32)
[2023-03-30] MEDS: VITAMIN A PO SCH (09:26)
[2023-03-30] MEDS: COD LIVER OIL PO SCH (09:26)
[2023-03-30] MEDS: CHOLECALCIFEROL PO SCH (09:26)
[2023-03-30] MEDS: VITAMIN B-COMPLEX PO SCH (09:27)
[2023-03-30] MEDS: Polyethylene Glycol 3350 17 GM Packet PER TUBE SCH (09:27)
[2023-03-30] MEDS: Acetaminophen 325 MG TAB PO PRN (20:31)
[2023-03-31] MEDS: Polyethylene Glycol 3350 17 GM Packet PER TUBE SCH (08:54)
[2023-03-31] MEDS: Ferrous Gluconate 324 MG TAB PO SCH (08:55)
[2023-03-31] MEDS: Lisinopril 20 MG TAB PO SCH (08:55)
[2023-03-31] MEDS: Vitamin E 400 UNITS CAP PO SCH (08:55)
[2023-03-31] MEDS: Cholecalciferol (Vitamin D3) 400 UNITS TAB PO SCH (08:55)
[2023-03-31] MEDS: Cyanocobalamin (Vitamin B-12) 1,000 MCG TAB PO SCH (08:55)
[2023-03-31] MEDS: Ascorbic Acid 500 mg Chewable Tablet PO SCH (08:55)
[2023-03-31] MEDS: Ranolazine 500 MG ER.TAB PO SCH ×2 (08:55→20:35)
[2023-03-31] MEDS: Famotidine 20 MG TAB PO SCH ×2 (08:55→20:35)
[2023-03-31] MEDS: Nystatin Cream 15 GM TUBE TOP SCH ×2 (08:56→20:37)
[2023-03-31] MEDS: CHOLECALCIFEROL PO SCH (08:58)
[2023-03-31] MEDS: COD LIVER OIL PO SCH (08:58)
[2023-03-31] MEDS: VITAMIN B-COMPLEX PO SCH (08:58)
[2023-03-31] MEDS: VITAMIN A PO SCH (08:58)
[2023-03-31] MEDS: Acetaminophen 325 MG TAB PO PRN (20:35)
[2023-04-01] MEDS: Polyethylene Glycol 3350 17 GM Packet PER TUBE SCH (08:42)
[2023-04-01] MEDS: Ranolazine 500 MG ER.TAB PO SCH ×2 (08:42→20:57)
[2023-04-01] MEDS: Famotidine 20 MG TAB PO SCH ×2 (08:42→20:57)
[2023-04-01] MEDS: Ascorbic Acid 500 mg Chewable Tablet PO SCH (08:42)
[2023-04-01] MEDS: Vitamin E 400 UNITS CAP PO SCH (08:43)
[2023-04-01] MEDS: Cholecalciferol (Vitamin D3) 400 UNITS TAB PO SCH (08:43)
[2023-04-01] MEDS: Ferrous Gluconate 324 MG TAB PO SCH (08:43)
[2023-04-01] MEDS: VITAMIN B-COMPLEX PO SCH (08:43)
[2023-04-01] MEDS: Lisinopril 20 MG TAB PO SCH (08:43)
[2023-04-01] MEDS: Cyanocobalamin (Vitamin B-12) 1,000 MCG TAB PO SCH (08:43)
[2023-04-01] MEDS: COD LIVER OIL PO SCH (08:44)
[2023-04-01] MEDS: VITAMIN A PO SCH (08:44)
[2023-04-01] MEDS: CHOLECALCIFEROL PO SCH (08:44)
[2023-04-01] MEDS: Nystatin Cream 15 GM TUBE TOP SCH ×2 (08:52→20:59)
[2023-04-01] MEDS: Acetaminophen 325 MG TAB PO PRN (20:58)
[2023-04-02 05:24] LABS: Hematocrit 31.8 % (36.0-47.0); Hemoglobin 9.9 g/dL (12.0-16.0); Mean Corpuscular HGB CONC 31.1 g/dL (32.0-36.0); Mean Corpuscular Hemoglobin 32.3 pg (27.0-31.0); Mean Corpuscular Volume 103.9 fl (78.0-98.0); Mean Platelet Volume 9.5 fL (7.4-10.4); Platelet Count 211 10x3/uL (130-400); Red Blood Cell (RBC) Count 3.06 mill/uL (4.20-5.40); White Blood Cell (WBC) Count 6.7 10x3/uL (4.8-10.8)
[2023-04-02 05:41] LABS: Anion Gap 13 mmol/L (10-20); BUN (Urea Nitrogen) 25 mg/dL (9.8-20.1); Calc. Creatinine Clearance 68 mL/min (70-130); Calcium 9.9 mg/dL (7.8-10.44); Carbon Dioxide 23 mmol/L (23-31); Chloride 108 mmol/L (98-107); Estimated GFR 61; Glucose 98 mg/dL (83-110); Potassium 4.3 mmol/L (3.5-5.1); Sodium 140 mmol/L (136-145)
[2023-04-02] MEDS: Cholecalciferol (Vitamin D3) 400 UNITS TAB PO SCH (08:27)
[2023-04-02] MEDS: Ranolazine 500 MG ER.TAB PO SCH ×2 (08:27→20:22)
[2023-04-02] MEDS: Lisinopril 20 MG TAB PO SCH (08:28)
[2023-04-02] MEDS: Ferrous Gluconate 324 MG TAB PO SCH (08:28)
[2023-04-02] MEDS: Cyanocobalamin (Vitamin B-12) 1,000 MCG TAB PO SCH (08:28)
[2023-04-02] MEDS: Famotidine 20 MG TAB PO SCH ×2 (08:29→20:22)
[2023-04-02] MEDS: CHOLECALCIFEROL PO SCH (08:29)
[2023-04-02] MEDS: VITAMIN B-COMPLEX PO SCH (08:29)
[2023-04-02] MEDS: COD LIVER OIL PO SCH (08:29)
[2023-04-02] MEDS: Polyethylene Glycol 3350 17 GM Packet PER TUBE SCH (08:29)
[2023-04-02] MEDS: VITAMIN A PO SCH (08:29)
[2023-04-02] MEDS: Nystatin Cream 15 GM TUBE TOP SCH ×2 (08:32→20:22)
[2023-04-02] MEDS: Ascorbic Acid 500 mg Chewable Tablet PO SCH (08:41)
[2023-04-02] MEDS: Vitamin E 400 UNITS CAP PO SCH (08:41)
[2023-04-02] MEDS: Acetaminophen 325 MG TAB PO PRN (20:22)
[2023-04-03] MEDS: Lisinopril 20 MG TAB PO SCH (08:52)
[2023-04-03] MEDS: Ascorbic Acid 500 mg Chewable Tablet PO SCH (08:52)
[2023-04-03] MEDS: Ferrous Gluconate 324 MG TAB PO SCH (08:52)
[2023-04-03] MEDS: Ranolazine 500 MG ER.TAB PO SCH ×2 (08:53→20:39)
[2023-04-03] MEDS: CHOLECALCIFEROL PO SCH (08:53)
[2023-04-03] MEDS: VITAMIN B-COMPLEX PO SCH (08:53)
[2023-04-03] MEDS: VITAMIN A PO SCH (08:53)
[2023-04-03] MEDS: Polyethylene Glycol 3350 17 GM Packet PER TUBE SCH (08:53)
[2023-04-03] MEDS: COD LIVER OIL PO SCH (08:53)
[2023-04-03] MEDS: Cyanocobalamin (Vitamin B-12) 1,000 MCG TAB PO SCH (08:53)
[2023-04-03] MEDS: Cholecalciferol (Vitamin D3) 400 UNITS TAB PO SCH (08:53)
[2023-04-03] MEDS: Vitamin E 400 UNITS CAP PO SCH (08:53)
[2023-04-03] MEDS: Famotidine 20 MG TAB PO SCH ×2 (08:53→20:39)
[2023-04-03] MEDS: Nystatin Cream 15 GM TUBE TOP SCH ×2 (08:54→20:41)
[2023-04-03] MEDS: Acetaminophen 325 MG TAB PO PRN (20:40)
[2023-04-04] MEDS: Famotidine 20 MG TAB PO SCH ×2 (09:04→20:40)
[2023-04-04] MEDS: Cyanocobalamin (Vitamin B-12) 1,000 MCG TAB PO SCH (09:04)
[2023-04-04] MEDS: Ferrous Gluconate 324 MG TAB PO SCH (09:04)
[2023-04-04] MEDS: Cholecalciferol (Vitamin D3) 400 UNITS TAB PO SCH (09:04)
[2023-04-04] MEDS: Polyethylene Glycol 3350 17 GM Packet PER TUBE SCH (09:05)
[2023-04-04] MEDS: Ascorbic Acid 500 mg Chewable Tablet PO SCH (09:05)
[2023-04-04] MEDS: Lisinopril 20 MG TAB PO SCH (09:05)
[2023-04-04] MEDS: Ranolazine 500 MG ER.TAB PO SCH ×2 (09:05→20:40)
[2023-04-04] MEDS: Vitamin E 400 UNITS CAP PO SCH (09:05)
[2023-04-04] MEDS: CHOLECALCIFEROL PO SCH (09:06)
[2023-04-04] MEDS: VITAMIN A PO SCH (09:06)
[2023-04-04] MEDS: Nystatin Cream 15 GM TUBE TOP SCH ×2 (09:06→20:41)
[2023-04-04] MEDS: VITAMIN B-COMPLEX PO SCH (09:06)
[2023-04-04] MEDS: COD LIVER OIL PO SCH (09:06)
[2023-04-04] MEDS: Acetaminophen 325 MG TAB PO PRN ×2 (09:22→20:40)
[2023-04-05] MEDS: Lisinopril 20 MG TAB PO SCH (08:17)
[2023-04-05] MEDS: Ferrous Gluconate 324 MG TAB PO SCH (08:17)
[2023-04-05] MEDS: Famotidine 20 MG TAB PO SCH ×2 (08:17→21:15)
[2023-04-05] MEDS: VITAMIN B-COMPLEX PO SCH (08:18)
[2023-04-05] MEDS: Cyanocobalamin (Vitamin B-12) 1,000 MCG TAB PO SCH (08:18)
[2023-04-05] MEDS: Polyethylene Glycol 3350 17 GM Packet PER TUBE SCH (08:18)
[2023-04-05] MEDS: Vitamin E 400 UNITS CAP PO SCH (08:18)
[2023-04-05] MEDS: Ascorbic Acid 500 mg Chewable Tablet PO SCH (08:18)
[2023-04-05] MEDS: Ranolazine 500 MG ER.TAB PO SCH ×2 (08:18→21:15)
[2023-04-05] MEDS: COD LIVER OIL PO SCH (08:19)
[2023-04-05] MEDS: VITAMIN A PO SCH (08:19)
[2023-04-05] MEDS: CHOLECALCIFEROL PO SCH (08:19)
[2023-04-05] MEDS: Nystatin Cream 15 GM TUBE TOP SCH ×2 (08:23→21:15)
[2023-04-05] MEDS: Cholecalciferol (Vitamin D3) 400 UNITS TAB PO SCH (09:09)
[2023-04-05] MEDS ORDERED: Acetaminophen/Codeine 30-300mg Tablet PO PRN (13:14)
[2023-04-05] MEDS: Acetaminophen 325 MG TAB PO PRN (21:15)
[2023-04-05 22:05] LABS: Bilirubin Negative (Negative); Blood, Urine Trace (Negative); Glucose, Urine (Dipstick) Negative (Negative); Ketone, Urine Negative (Negative); Leukocyte Moderate (Negative); Nitrite Positive (Negative); Protein, Urine (Dipstick) Trace mg/dL (Neg-Trace); Specific Gravity, Urine 1.015 (1.005-1.030); Urobilinogen 0.2 mg/dL (Less than 2); pH, Urine 5.5 (5.0-9.0)
[2023-04-05 22:08] LABS: Bacteria/HPF 3+ HPF (None Seen); CAUTI Indications for Culture Pelvic or flank pain; Clarity Cloudy (Clear); RBC/HPF 0-3 HPF (0-3); Squamous Epithelial 0-3 HPF (0-3); WBC/HPF Greater than 50 HPF (0-3)
[2023-04-05 22:09] LABS: Urine Culture Reflex Yes Yes
[2023-04-06] MEDS: Polyethylene Glycol 3350 17 GM Packet PER TUBE SCH (08:43)
[2023-04-06] MEDS: Acetaminophen 325 MG TAB PO PRN ×2 (08:43→20:22)
[2023-04-06] MEDS: Ranolazine 500 MG ER.TAB PO SCH ×2 (08:44→20:21)
[2023-04-06] MEDS: Cyanocobalamin (Vitamin B-12) 1,000 MCG TAB PO SCH (08:44)
[2023-04-06] MEDS: Lisinopril 20 MG TAB PO SCH (08:44)
[2023-04-06] MEDS: Nitrofurantoin Monohyd/M-Cryst 100 MG CAP PO SCH ×2 (08:44→20:21)
[2023-04-06] MEDS: Famotidine 20 MG TAB PO SCH ×2 (08:44→20:23)
[2023-04-06] MEDS: Ferrous Gluconate 324 MG TAB PO SCH (08:44)
[2023-04-06] MEDS: VITAMIN B-COMPLEX PO SCH (08:45)
[2023-04-06] MEDS: Cholecalciferol (Vitamin D3) 400 UNITS TAB PO SCH (08:45)
[2023-04-06] MEDS: Ascorbic Acid 500 mg Chewable Tablet PO SCH (08:45)
[2023-04-06] MEDS: CHOLECALCIFEROL PO SCH (08:45)
[2023-04-06] MEDS: VITAMIN A PO SCH (08:45)
[2023-04-06] MEDS: Nystatin Cream 15 GM TUBE TOP SCH ×2 (08:45→20:23)
[2023-04-06] MEDS: Vitamin E 400 UNITS CAP PO SCH (08:45)
[2023-04-06] MEDS: COD LIVER OIL PO SCH (08:45)
[2023-04-06] MEDS ORDERED: Sulfameth/Trimethoprim DS 800-160mg TAB PO SCH (09:00)
[2023-04-07] MEDS: Nitrofurantoin Monohyd/M-Cryst 100 MG CAP PO SCH ×2 (09:04→20:58)
[2023-04-07] MEDS: Polyethylene Glycol 3350 17 GM Packet PER TUBE SCH (09:04)
[2023-04-07] MEDS: Famotidine 20 MG TAB PO SCH ×2 (09:04→20:58)
[2023-04-07] MEDS: Lisinopril 20 MG TAB PO SCH (09:05)
[2023-04-07] MEDS: Vitamin E 400 UNITS CAP PO SCH (09:05)
[2023-04-07] MEDS: Cholecalciferol (Vitamin D3) 400 UNITS TAB PO SCH (09:05)
[2023-04-07] MEDS: Ferrous Gluconate 324 MG TAB PO SCH (09:05)
[2023-04-07] MEDS: Cyanocobalamin (Vitamin B-12) 1,000 MCG TAB PO SCH (09:05)
[2023-04-07] MEDS: Nystatin Cream 15 GM TUBE TOP SCH ×2 (09:06→20:59)
[2023-04-07] MEDS: Ascorbic Acid 500 mg Chewable Tablet PO SCH (09:06)
[2023-04-07] MEDS: Ranolazine 500 MG ER.TAB PO SCH ×2 (09:06→21:00)
[2023-04-07] MEDS: VITAMIN B-COMPLEX PO SCH (09:06)
[2023-04-07] MEDS: CHOLECALCIFEROL PO SCH (09:07)
[2023-04-07] MEDS: VITAMIN A PO SCH (09:07)
[2023-04-07] MEDS: COD LIVER OIL PO SCH (09:07)
[2023-04-07] MEDS: Acetaminophen 325 MG TAB PO PRN (20:58)
[2023-04-08] MEDS: Ferrous Gluconate 324 MG TAB PO SCH (08:14)
[2023-04-08] MEDS: Cyanocobalamin (Vitamin B-12) 1,000 MCG TAB PO SCH (08:14)
[2023-04-08] MEDS: Lisinopril 20 MG TAB PO SCH (08:14)
[2023-04-08] MEDS: Ranolazine 500 MG ER.TAB PO SCH ×2 (08:14→20:17)
[2023-04-08] MEDS: Vitamin E 400 UNITS CAP PO SCH (08:15)
[2023-04-08] MEDS: Famotidine 20 MG TAB PO SCH ×2 (08:15→20:18)
[2023-04-08] MEDS: VITAMIN A PO SCH (08:15)
[2023-04-08] MEDS: Nitrofurantoin Monohyd/M-Cryst 100 MG CAP PO SCH ×2 (08:15→20:17)
[2023-04-08] MEDS: Ascorbic Acid 500 mg Chewable Tablet PO SCH (08:15)
[2023-04-08] MEDS: CHOLECALCIFEROL PO SCH (08:15)
[2023-04-08] MEDS: COD LIVER OIL PO SCH (08:15)
[2023-04-08] MEDS: Nystatin Cream 15 GM TUBE TOP SCH ×2 (08:15→20:19)
[2023-04-08] MEDS: Cholecalciferol (Vitamin D3) 400 UNITS TAB PO SCH (08:15)
[2023-04-08] MEDS: VITAMIN B-COMPLEX PO SCH (08:15)
[2023-04-08] MEDS: Polyethylene Glycol 3350 17 GM Packet PER TUBE SCH (08:16)
[2023-04-08] MEDS: Cyclobenzaprine 10 MG TAB PO PRN (20:18)
[2023-04-08] MEDS: Acetaminophen 325 MG TAB PO PRN (20:18)
[2023-04-09] MEDS: Acetaminophen 325 MG TAB PO PRN ×2 (05:51→20:29)
[2023-04-09] MEDS: Cholecalciferol (Vitamin D3) 400 UNITS TAB PO SCH (08:29)
[2023-04-09] MEDS: Famotidine 20 MG TAB PO SCH ×2 (08:29→20:28)
[2023-04-09] MEDS: Nitrofurantoin Monohyd/M-Cryst 100 MG CAP PO SCH ×2 (08:29→20:28)
[2023-04-09] MEDS: Vitamin E 400 UNITS CAP PO SCH (08:29)
[2023-04-09] MEDS: Lisinopril 20 MG TAB PO SCH (08:29)
[2023-04-09] MEDS: Ferrous Gluconate 324 MG TAB PO SCH (08:29)
[2023-04-09] MEDS: Cyanocobalamin (Vitamin B-12) 1,000 MCG TAB PO SCH (08:29)
[2023-04-09] MEDS: Ranolazine 500 MG ER.TAB PO SCH ×2 (08:29→20:28)
[2023-04-09] MEDS: Ascorbic Acid 500 mg Chewable Tablet PO SCH (08:30)
[2023-04-09] MEDS: Polyethylene Glycol 3350 17 GM Packet PER TUBE SCH (08:30)
[2023-04-09] MEDS: Nystatin Cream 15 GM TUBE TOP SCH ×2 (08:30→20:29)
[2023-04-09] MEDS: COD LIVER OIL PO SCH (08:31)
[2023-04-09] MEDS: VITAMIN B-COMPLEX PO SCH (08:31)
[2023-04-09] MEDS: VITAMIN A PO SCH (08:31)
[2023-04-09] MEDS: CHOLECALCIFEROL PO SCH (08:31)
[2023-04-09] MEDS: Cyclobenzaprine 10 MG TAB PO PRN (20:29)
[2023-04-10] MEDS: Ferrous Gluconate 324 MG TAB PO SCH (09:52)
[2023-04-10] MEDS: Famotidine 20 MG TAB PO SCH ×2 (09:52→20:40)
[2023-04-10] MEDS: Polyethylene Glycol 3350 17 GM Packet PER TUBE SCH (09:52)
[2023-04-10] MEDS: Cholecalciferol (Vitamin D3) 400 UNITS TAB PO SCH (09:52)
[2023-04-10] MEDS: Vitamin E 400 UNITS CAP PO SCH (09:52)
[2023-04-10] MEDS: Cyanocobalamin (Vitamin B-12) 1,000 MCG TAB PO SCH (09:52)
[2023-04-10] MEDS: Ranolazine 500 MG ER.TAB PO SCH ×2 (09:53→20:40)
[2023-04-10] MEDS: Nystatin Cream 15 GM TUBE TOP SCH ×2 (09:53→20:42)
[2023-04-10] MEDS: Ascorbic Acid 500 mg Chewable Tablet PO SCH (09:53)
[2023-04-10] MEDS: Nitrofurantoin Monohyd/M-Cryst 100 MG CAP PO SCH ×2 (09:53→20:41)
[2023-04-10] MEDS: Lisinopril 20 MG TAB PO SCH (09:53)
[2023-04-10] MEDS: VITAMIN A PO SCH (09:56)
[2023-04-10] MEDS: VITAMIN B-COMPLEX PO SCH (09:56)
[2023-04-10] MEDS: CHOLECALCIFEROL PO SCH (09:56)
[2023-04-10] MEDS: COD LIVER OIL PO SCH (09:56)
[2023-04-10] MEDS: Cyclobenzaprine 10 MG TAB PO PRN (20:39)
[2023-04-10] MEDS: Acetaminophen 325 MG TAB PO PRN (20:41)
[2023-04-11 05:22] LABS: Hematocrit 34.3 % (36.0-47.0); Hemoglobin 10.4 g/dL (12.0-16.0); Platelet Count 243 10x3/uL (130-400)
[2023-04-11] MEDS: Cyanocobalamin (Vitamin B-12) 1,000 MCG TAB PO SCH (08:37)
[2023-04-11] MEDS: Ferrous Gluconate 324 MG TAB PO SCH (08:37)
[2023-04-11] MEDS: Cholecalciferol (Vitamin D3) 400 UNITS TAB PO SCH (08:37)
[2023-04-11] MEDS: Ascorbic Acid 500 mg Chewable Tablet PO SCH (08:37)
[2023-04-11] MEDS: Vitamin E 400 UNITS CAP PO SCH (08:37)
[2023-04-11] MEDS: Nitrofurantoin Monohyd/M-Cryst 100 MG CAP PO SCH ×2 (08:37→21:12)
[2023-04-11] MEDS: Lisinopril 20 MG TAB PO SCH (08:38)
[2023-04-11] MEDS: Famotidine 20 MG TAB PO SCH ×2 (08:38→21:12)
[2023-04-11] MEDS: Ranolazine 500 MG ER.TAB PO SCH ×2 (08:38→21:12)
[2023-04-11] MEDS: CHOLECALCIFEROL PO SCH (08:39)
[2023-04-11] MEDS: COD LIVER OIL PO SCH (08:39)
[2023-04-11] MEDS: VITAMIN A PO SCH (08:39)
[2023-04-11] MEDS: VITAMIN B-COMPLEX PO SCH (08:39)
[2023-04-11] MEDS: Nystatin Cream 15 GM TUBE TOP SCH ×2 (08:39→21:12)
[2023-04-11] MEDS: Polyethylene Glycol 3350 17 GM Packet PER TUBE SCH (08:40)
[2023-04-12] MEDS: Acetaminophen 325 MG TAB PO PRN (05:55)
[2023-04-12] MEDS: Famotidine 20 MG TAB PO SCH ×2 (08:06→20:18)
[2023-04-12] MEDS: Ranolazine 500 MG ER.TAB PO SCH ×2 (08:06→20:18)
[2023-04-12] MEDS: Nitrofurantoin Monohyd/M-Cryst 100 MG CAP PO SCH ×2 (08:07→20:19)
[2023-04-12] MEDS: Vitamin E 400 UNITS CAP PO SCH (08:07)
[2023-04-12] MEDS: Cholecalciferol (Vitamin D3) 400 UNITS TAB PO SCH (08:07)
[2023-04-12] MEDS: Ferrous Gluconate 324 MG TAB PO SCH (08:07)
[2023-04-12] MEDS: CHOLECALCIFEROL PO SCH (08:07)
[2023-04-12] MEDS: COD LIVER OIL PO SCH (08:07)
[2023-04-12] MEDS: Cyanocobalamin (Vitamin B-12) 1,000 MCG TAB PO SCH (08:07)
[2023-04-12] MEDS: VITAMIN A PO SCH (08:07)
[2023-04-12] MEDS: Ascorbic Acid 500 mg Chewable Tablet PO SCH (08:07)
[2023-04-12] MEDS: VITAMIN B-COMPLEX PO SCH (08:08)
[2023-04-12] MEDS: Polyethylene Glycol 3350 17 GM Packet PER TUBE SCH (08:11)
[2023-04-12] MEDS: Nystatin Cream 15 GM TUBE TOP SCH ×2 (08:11→20:19)
[2023-04-12] MEDS: Lisinopril 20 MG TAB PO SCH (08:12)
[2023-04-13] MEDS: Famotidine 20 MG TAB PO SCH ×2 (08:27→20:36)
[2023-04-13] MEDS: Lisinopril 20 MG TAB PO SCH (08:27)
[2023-04-13] MEDS: Ascorbic Acid 500 mg Chewable Tablet PO SCH (08:27)
[2023-04-13] MEDS: Ranolazine 500 MG ER.TAB PO SCH ×2 (08:27→20:37)
[2023-04-13] MEDS: Ferrous Gluconate 324 MG TAB PO SCH (08:27)
[2023-04-13] MEDS: Vitamin E 400 UNITS CAP PO SCH (08:28)
[2023-04-13] MEDS: CHOLECALCIFEROL PO SCH (08:28)
[2023-04-13] MEDS: Cholecalciferol (Vitamin D3) 400 UNITS TAB PO SCH (08:28)
[2023-04-13] MEDS: VITAMIN B-COMPLEX PO SCH (08:28)
[2023-04-13] MEDS: VITAMIN A PO SCH (08:28)
[2023-04-13] MEDS: Cyanocobalamin (Vitamin B-12) 1,000 MCG TAB PO SCH (08:28)
[2023-04-13] MEDS: COD LIVER OIL PO SCH (08:28)
[2023-04-13] MEDS: Nystatin Cream 15 GM TUBE TOP SCH ×2 (08:29→20:37)
[2023-04-13] MEDS: Polyethylene Glycol 3350 17 GM Packet PER TUBE SCH (08:30)
[2023-04-13] MEDS: Acetaminophen 325 MG TAB PO PRN (20:36)
[2023-04-14] MEDS: Ascorbic Acid 500 mg Chewable Tablet PO SCH (09:35)
[2023-04-14] MEDS: Ferrous Gluconate 324 MG TAB PO SCH (09:35)
[2023-04-14] MEDS: Lisinopril 20 MG TAB PO SCH (09:36)
[2023-04-14] MEDS: Vitamin E 400 UNITS CAP PO SCH (09:36)
[2023-04-14] MEDS: Famotidine 20 MG TAB PO SCH ×2 (09:36→20:37)
[2023-04-14] MEDS: Cyanocobalamin (Vitamin B-12) 1,000 MCG TAB PO SCH (09:36)
[2023-04-14] MEDS: Cholecalciferol (Vitamin D3) 400 UNITS TAB PO SCH (09:36)
[2023-04-14] MEDS: Nystatin Cream 15 GM TUBE TOP SCH ×2 (09:36→20:37)
[2023-04-14] MEDS: Ranolazine 500 MG ER.TAB PO SCH ×2 (09:36→20:37)
[2023-04-14] MEDS: Polyethylene Glycol 3350 17 GM Packet PER TUBE SCH (09:37)
[2023-04-14] MEDS: VITAMIN B-COMPLEX PO SCH (09:38)
[2023-04-14] MEDS: COD LIVER OIL PO SCH (09:38)
[2023-04-14] MEDS: CHOLECALCIFEROL PO SCH (09:38)
[2023-04-14] MEDS: VITAMIN A PO SCH (09:38)
[2023-04-14] MEDS ORDERED: Acetaminophen/Codeine 30-300mg Tablet PO PRN (16:16)
[2023-04-14] MEDS: Acetaminophen 325 MG TAB PO PRN (20:37)
[2023-04-15] MEDS: Famotidine 20 MG TAB PO SCH ×2 (09:17→20:35)
[2023-04-15] MEDS: Ranolazine 500 MG ER.TAB PO SCH ×2 (09:17→20:35)
[2023-04-15] MEDS: Cyanocobalamin (Vitamin B-12) 1,000 MCG TAB PO SCH (09:17)
[2023-04-15] MEDS: Vitamin E 400 UNITS CAP PO SCH (09:17)
[2023-04-15] MEDS: Ascorbic Acid 500 mg Chewable Tablet PO SCH (09:17)
[2023-04-15] MEDS: Ferrous Gluconate 324 MG TAB PO SCH (09:17)
[2023-04-15] MEDS: Lisinopril 20 MG TAB PO SCH (09:17)
[2023-04-15] MEDS: Cholecalciferol (Vitamin D3) 400 UNITS TAB PO SCH (09:17)
[2023-04-15] MEDS: Polyethylene Glycol 3350 17 GM Packet PER TUBE SCH (09:18)
[2023-04-15] MEDS: Nystatin Cream 15 GM TUBE TOP SCH ×2 (09:18→20:36)
[2023-04-15] MEDS: VITAMIN B-COMPLEX PO SCH (09:19)
[2023-04-15] MEDS: COD LIVER OIL PO SCH (09:19)
[2023-04-15] MEDS: CHOLECALCIFEROL PO SCH (09:19)
[2023-04-15] MEDS: VITAMIN A PO SCH (09:19)
[2023-04-15] MEDS: Acetaminophen 325 MG TAB PO PRN (20:35)
[2023-04-15] MEDS: Cyclobenzaprine 10 MG TAB PO PRN (23:43)
[2023-04-16] MEDS: Polyethylene Glycol 3350 17 GM Packet PER TUBE SCH (08:46)
[2023-04-16] MEDS: Famotidine 20 MG TAB PO SCH ×2 (08:49→20:41)
[2023-04-16] MEDS: Vitamin E 400 UNITS CAP PO SCH (08:49)
[2023-04-16] MEDS: Ranolazine 500 MG ER.TAB PO SCH ×2 (08:49→20:41)
[2023-04-16] MEDS: Cyanocobalamin (Vitamin B-12) 1,000 MCG TAB PO SCH (08:49)
[2023-04-16] MEDS: Lisinopril 20 MG TAB PO SCH (08:49)
[2023-04-16] MEDS: Ferrous Gluconate 324 MG TAB PO SCH (08:49)
[2023-04-16] MEDS: Ascorbic Acid 500 mg Chewable Tablet PO SCH (08:50)
[2023-04-16] MEDS: Cholecalciferol (Vitamin D3) 400 UNITS TAB PO SCH (08:50)
[2023-04-16] MEDS: Nystatin Cream 15 GM TUBE TOP SCH (08:50)
[2023-04-16] MEDS: COD LIVER OIL PO SCH (08:52)
[2023-04-16] MEDS: VITAMIN A PO SCH (08:52)
[2023-04-16] MEDS: VITAMIN B-COMPLEX PO SCH (08:52)
[2023-04-16] MEDS: CHOLECALCIFEROL PO SCH (08:52)
[2023-04-16] MEDS: Acetaminophen 325 MG TAB PO PRN ×2 (12:46→20:40)
[2023-04-16] MEDS ORDERED: Nystatin Cream 15 GM TUBE TOP PRN (15:45)
[2023-04-17] MEDS: Acetaminophen 325 MG TAB PO PRN ×2 (05:51→20:30)
[2023-04-17] MEDS: Ascorbic Acid 500 mg Chewable Tablet PO SCH (08:02)
[2023-04-17] MEDS: Ranolazine 500 MG ER.TAB PO SCH ×2 (08:02→20:31)
[2023-04-17] MEDS: Famotidine 20 MG TAB PO SCH ×2 (08:02→20:31)
[2023-04-17] MEDS: Cyanocobalamin (Vitamin B-12) 1,000 MCG TAB PO SCH (08:02)
[2023-04-17] MEDS: Cholecalciferol (Vitamin D3) 400 UNITS TAB PO SCH (08:02)
[2023-04-17] MEDS: Vitamin E 400 UNITS CAP PO SCH (08:02)
[2023-04-17] MEDS: Ferrous Gluconate 324 MG TAB PO SCH (08:02)
[2023-04-17] MEDS: VITAMIN B-COMPLEX PO SCH (08:06)
[2023-04-17] MEDS: COD LIVER OIL PO SCH (08:06)
[2023-04-17] MEDS: Lisinopril 20 MG TAB PO SCH (08:06)
[2023-04-17] MEDS: CHOLECALCIFEROL PO SCH (08:06)
[2023-04-17] MEDS: VITAMIN A PO SCH (08:06)
[2023-04-17] MEDS: Polyethylene Glycol 3350 17 GM Packet PER TUBE SCH (08:07)
[2023-04-17] MEDS: Cyclobenzaprine 10 MG TAB PO PRN (20:30)
[2023-04-18] MEDS: Lisinopril 20 MG TAB PO SCH (08:25)
[2023-04-18] MEDS: Ranolazine 500 MG ER.TAB PO SCH ×2 (08:25→20:09)
[2023-04-18] MEDS: Cholecalciferol (Vitamin D3) 400 UNITS TAB PO SCH (08:26)
[2023-04-18] MEDS: Famotidine 20 MG TAB PO SCH ×2 (08:26→20:09)
[2023-04-18] MEDS: Vitamin E 400 UNITS CAP PO SCH (08:26)
[2023-04-18] MEDS: Ferrous Gluconate 324 MG TAB PO SCH (08:26)
[2023-04-18] MEDS: Polyethylene Glycol 3350 17 GM Packet PER TUBE SCH (08:26)
[2023-04-18] MEDS: Cyanocobalamin (Vitamin B-12) 1,000 MCG TAB PO SCH (08:26)
[2023-04-18] MEDS: Ascorbic Acid 500 mg Chewable Tablet PO SCH (08:26)
[2023-04-18] MEDS: CHOLECALCIFEROL PO SCH (08:30)
[2023-04-18] MEDS: VITAMIN B-COMPLEX PO SCH (08:30)
[2023-04-18] MEDS: COD LIVER OIL PO SCH (08:30)
[2023-04-18] MEDS: VITAMIN A PO SCH (08:30)
[2023-04-18] MEDS: Cyclobenzaprine 10 MG TAB PO PRN (20:09)
[2023-04-18] MEDS: Acetaminophen 325 MG TAB PO PRN (20:10)
[2023-04-19] MEDS: Lisinopril 20 MG TAB PO SCH (08:20)
[2023-04-19] MEDS: Ferrous Gluconate 324 MG TAB PO SCH (08:20)
[2023-04-19] MEDS: Cholecalciferol (Vitamin D3) 400 UNITS TAB PO SCH (08:20)
[2023-04-19] MEDS: Ranolazine 500 MG ER.TAB PO SCH ×2 (08:20→20:03)
[2023-04-19] MEDS: Vitamin E 400 UNITS CAP PO SCH (08:20)
[2023-04-19] MEDS: Ascorbic Acid 500 mg Chewable Tablet PO SCH (08:20)
[2023-04-19] MEDS: Cyanocobalamin (Vitamin B-12) 1,000 MCG TAB PO SCH (08:20)
[2023-04-19] MEDS: Famotidine 20 MG TAB PO SCH ×2 (08:20→20:03)
[2023-04-19] MEDS: COD LIVER OIL PO SCH (08:21)
[2023-04-19] MEDS: VITAMIN B-COMPLEX PO SCH (08:21)
[2023-04-19] MEDS: VITAMIN A PO SCH (08:21)
[2023-04-19] MEDS: CHOLECALCIFEROL PO SCH (08:21)
[2023-04-19] MEDS: Polyethylene Glycol 3350 17 GM Packet PER TUBE SCH (08:22)
[2023-04-19] MEDS: Acetaminophen 325 MG TAB PO PRN (20:03)
[2023-04-19] MEDS: Cyclobenzaprine 10 MG TAB PO PRN (20:03)
[2023-04-20 05:26] LABS: Hemoglobin 9.7 g/dL (12.0-16.0); Platelet Count 207 10x3/uL (130-400)
[2023-04-20] MEDS: Ascorbic Acid 500 mg Chewable Tablet PO SCH (08:26)
[2023-04-20] MEDS: COD LIVER OIL PO SCH (08:26)
[2023-04-20] MEDS: Cyanocobalamin (Vitamin B-12) 1,000 MCG TAB PO SCH (08:26)
[2023-04-20] MEDS: CHOLECALCIFEROL PO SCH (08:26)
[2023-04-20] MEDS: Famotidine 20 MG TAB PO SCH ×2 (08:26→20:43)
[2023-04-20] MEDS: Ranolazine 500 MG ER.TAB PO SCH ×2 (08:26→20:43)
[2023-04-20] MEDS: Ferrous Gluconate 324 MG TAB PO SCH (08:26)
[2023-04-20] MEDS: Cholecalciferol (Vitamin D3) 400 UNITS TAB PO SCH (08:26)
[2023-04-20] MEDS: Polyethylene Glycol 3350 17 GM Packet PER TUBE SCH (08:26)
[2023-04-20] MEDS: Lisinopril 20 MG TAB PO SCH (08:26)
[2023-04-20] MEDS: VITAMIN A PO SCH (08:26)
[2023-04-20] MEDS: VITAMIN B-COMPLEX PO SCH (08:26)
[2023-04-20] MEDS: Vitamin E 400 UNITS CAP PO SCH (08:27)
[2023-04-20] MEDS: Acetaminophen 325 MG TAB PO PRN (20:43)
[2023-04-20] MEDS: Cyclobenzaprine 10 MG TAB PO PRN (20:44)
[2023-04-21] MEDS: Vitamin E 400 UNITS CAP PO SCH (08:08)
[2023-04-21] MEDS: Ranolazine 500 MG ER.TAB PO SCH ×2 (08:08→20:27)
[2023-04-21] MEDS: Polyethylene Glycol 3350 17 GM Packet PER TUBE SCH (08:08)
[2023-04-21] MEDS: Ascorbic Acid 500 mg Chewable Tablet PO SCH (08:09)
[2023-04-21] MEDS: Famotidine 20 MG TAB PO SCH ×2 (08:09→20:26)
[2023-04-21] MEDS: Ferrous Gluconate 324 MG TAB PO SCH (08:09)
[2023-04-21] MEDS: Lisinopril 20 MG TAB PO SCH (08:09)
[2023-04-21] MEDS: Cyanocobalamin (Vitamin B-12) 1,000 MCG TAB PO SCH (08:09)
[2023-04-21] MEDS: Cholecalciferol (Vitamin D3) 400 UNITS TAB PO SCH (08:09)
[2023-04-21] MEDS: VITAMIN B-COMPLEX PO SCH (08:10)
[2023-04-21] MEDS: VITAMIN A PO SCH (08:10)
[2023-04-21] MEDS: COD LIVER OIL PO SCH (08:10)
[2023-04-21] MEDS: CHOLECALCIFEROL PO SCH (08:10)
[2023-04-21] MEDS: Acetaminophen 325 MG TAB PO PRN (20:26)
[2023-04-21] MEDS: Cyclobenzaprine 10 MG TAB PO PRN (20:27)
[2023-04-22] MEDS: VITAMIN B-COMPLEX PO SCH (08:22)
[2023-04-22] MEDS: COD LIVER OIL PO SCH (08:22)
[2023-04-22] MEDS: VITAMIN A PO SCH (08:22)
[2023-04-22] MEDS: CHOLECALCIFEROL PO SCH (08:22)
[2023-04-22] MEDS: Lisinopril 20 MG TAB PO SCH (08:23)
[2023-04-22] MEDS: Polyethylene Glycol 3350 17 GM Packet PER TUBE SCH (08:24)
[2023-04-22] MEDS: Cyanocobalamin (Vitamin B-12) 1,000 MCG TAB PO SCH (08:25)
[2023-04-22] MEDS: Cholecalciferol (Vitamin D3) 400 UNITS TAB PO SCH (08:25)
[2023-04-22] MEDS: Vitamin E 400 UNITS CAP PO SCH (08:25)
[2023-04-22] MEDS: Ascorbic Acid 500 mg Chewable Tablet PO SCH (08:26)
[2023-04-22] MEDS: Ferrous Gluconate 324 MG TAB PO SCH (08:26)
[2023-04-22] MEDS: Ranolazine 500 MG ER.TAB PO SCH ×2 (08:28→20:35)
[2023-04-22] MEDS: Famotidine 20 MG TAB PO SCH ×2 (08:28→20:35)
[2023-04-22] MEDS: Acetaminophen 325 MG TAB PO PRN (20:35)
[2023-04-22] MEDS: Cyclobenzaprine 10 MG TAB PO PRN (20:35)
[2023-04-23] MEDS: VITAMIN A PO SCH (08:15)
[2023-04-23] MEDS: CHOLECALCIFEROL PO SCH (08:15)
[2023-04-23] MEDS: COD LIVER OIL PO SCH (08:15)
[2023-04-23] MEDS: VITAMIN B-COMPLEX PO SCH (08:15)
[2023-04-23] MEDS: Ferrous Gluconate 324 MG TAB PO SCH (08:16)
[2023-04-23] MEDS: Cyanocobalamin (Vitamin B-12) 1,000 MCG TAB PO SCH (08:16)
[2023-04-23] MEDS: Cholecalciferol (Vitamin D3) 400 UNITS TAB PO SCH (08:16)
[2023-04-23] MEDS: Vitamin E 400 UNITS CAP PO SCH (08:16)
[2023-04-23] MEDS: Famotidine 20 MG TAB PO SCH ×2 (08:16→20:26)
[2023-04-23] MEDS: Lisinopril 20 MG TAB PO SCH (08:16)
[2023-04-23] MEDS: Ranolazine 500 MG ER.TAB PO SCH ×2 (08:16→20:26)
[2023-04-23] MEDS: Ascorbic Acid 500 mg Chewable Tablet PO SCH (08:16)
[2023-04-23] MEDS: Polyethylene Glycol 3350 17 GM Packet PER TUBE SCH (08:17)
[2023-04-23] MEDS: Cyclobenzaprine 10 MG TAB PO PRN (20:30)
[2023-04-23] MEDS: Acetaminophen 325 MG TAB PO PRN (20:30)
[2023-04-24] MEDS: VITAMIN B-COMPLEX PO SCH (08:56)
[2023-04-24] MEDS: COD LIVER OIL PO SCH (08:57)
[2023-04-24] MEDS: VITAMIN A PO SCH (08:57)
[2023-04-24] MEDS: CHOLECALCIFEROL PO SCH (08:57)
[2023-04-24] MEDS: Cyanocobalamin (Vitamin B-12) 1,000 MCG TAB PO SCH (08:58)
[2023-04-24] MEDS: Lisinopril 20 MG TAB PO SCH (08:58)
[2023-04-24] MEDS: Polyethylene Glycol 3350 17 GM Packet PER TUBE SCH (08:58)
[2023-04-24] MEDS: Vitamin E 400 UNITS CAP PO SCH (08:59)
[2023-04-24] MEDS: Cholecalciferol (Vitamin D3) 400 UNITS TAB PO SCH (08:59)
[2023-04-24] MEDS: Ranolazine 500 MG ER.TAB PO SCH ×2 (08:59→20:27)
[2023-04-24] MEDS: Ascorbic Acid 500 mg Chewable Tablet PO SCH (08:59)
[2023-04-24] MEDS: Ferrous Gluconate 324 MG TAB PO SCH (08:59)
[2023-04-24] MEDS: Famotidine 20 MG TAB PO SCH ×2 (08:59→20:27)
[2023-04-24] MEDS: Cyclobenzaprine 10 MG TAB PO PRN (20:27)
[2023-04-24] MEDS: Acetaminophen 325 MG TAB PO PRN (20:27)
[2023-04-25] MEDS: Ascorbic Acid 500 mg Chewable Tablet PO SCH (09:27)
[2023-04-25] MEDS: Polyethylene Glycol 3350 17 GM Packet PER TUBE SCH (09:28)
[2023-04-25] MEDS: Lisinopril 20 MG TAB PO SCH (09:28)
[2023-04-25] MEDS: Cyanocobalamin (Vitamin B-12) 1,000 MCG TAB PO SCH (09:28)
[2023-04-25] MEDS: Cholecalciferol (Vitamin D3) 400 UNITS TAB PO SCH (09:28)
[2023-04-25] MEDS: Ferrous Gluconate 324 MG TAB PO SCH (09:28)
[2023-04-25] MEDS: Vitamin E 400 UNITS CAP PO SCH (09:28)
[2023-04-25] MEDS: Famotidine 20 MG TAB PO SCH ×2 (09:28→20:38)
[2023-04-25] MEDS: Ranolazine 500 MG ER.TAB PO SCH ×2 (09:28→20:38)
[2023-04-25] MEDS: CHOLECALCIFEROL PO SCH (09:29)
[2023-04-25] MEDS: VITAMIN B-COMPLEX PO SCH (09:29)
[2023-04-25] MEDS: COD LIVER OIL PO SCH (09:29)
[2023-04-25] MEDS: VITAMIN A PO SCH (09:29)
[2023-04-25] MEDS: Cyclobenzaprine 10 MG TAB PO PRN (20:38)
[2023-04-25] MEDS: Acetaminophen 325 MG TAB PO PRN (20:38)
[2023-04-26] MEDS: Ferrous Gluconate 324 MG TAB PO SCH (09:04)
[2023-04-26] MEDS: Ranolazine 500 MG ER.TAB PO SCH ×2 (09:06→20:42)
[2023-04-26] MEDS: Ascorbic Acid 500 mg Chewable Tablet PO SCH (09:06)
[2023-04-26] MEDS: Famotidine 20 MG TAB PO SCH ×2 (09:06→20:42)
[2023-04-26] MEDS: Vitamin E 400 UNITS CAP PO SCH (09:06)
[2023-04-26] MEDS: Cholecalciferol (Vitamin D3) 400 UNITS TAB PO SCH (09:06)
[2023-04-26] MEDS: Cyanocobalamin (Vitamin B-12) 1,000 MCG TAB PO SCH (09:06)
[2023-04-26] MEDS: Lisinopril 20 MG TAB PO SCH (09:07)
[2023-04-26] MEDS: VITAMIN A PO SCH (09:09)
[2023-04-26] MEDS: VITAMIN B-COMPLEX PO SCH (09:09)
[2023-04-26] MEDS: COD LIVER OIL PO SCH (09:09)
[2023-04-26] MEDS: CHOLECALCIFEROL PO SCH (09:09)
[2023-04-26] MEDS: Polyethylene Glycol 3350 17 GM Packet PER TUBE SCH (09:10)
[2023-04-26] MEDS: Acetaminophen 325 MG TAB PO PRN (20:42)
[2023-04-27 05:43] LABS: Hematocrit 32.5 % (36.0-47.0); Platelet Count 220 10x3/uL (130-400)
[2023-04-27] MEDS: Ascorbic Acid 500 mg Chewable Tablet PO SCH (08:32)
[2023-04-27] MEDS: Polyethylene Glycol 3350 17 GM Packet PER TUBE SCH (08:32)
[2023-04-27] MEDS: Ferrous Gluconate 324 MG TAB PO SCH (08:33)
[2023-04-27] MEDS: Vitamin E 400 UNITS CAP PO SCH (08:33)
[2023-04-27] MEDS: Cholecalciferol (Vitamin D3) 400 UNITS TAB PO SCH (08:33)
[2023-04-27] MEDS: Ranolazine 500 MG ER.TAB PO SCH ×2 (08:33→21:15)
[2023-04-27] MEDS: Famotidine 20 MG TAB PO SCH ×2 (08:33→21:15)
[2023-04-27] MEDS: Cyanocobalamin (Vitamin B-12) 1,000 MCG TAB PO SCH (08:33)
[2023-04-27] MEDS: Lisinopril 20 MG TAB PO SCH (08:33)
[2023-04-27] MEDS: COD LIVER OIL PO SCH (08:34)
[2023-04-27] MEDS: VITAMIN B-COMPLEX PO SCH (08:34)
[2023-04-27] MEDS: VITAMIN A PO SCH (08:34)
[2023-04-27] MEDS: CHOLECALCIFEROL PO SCH (08:34)
[2023-04-27] MEDS: Acetaminophen 325 MG TAB PO PRN (21:16)
[2023-04-28] MEDS: Cholecalciferol (Vitamin D3) 400 UNITS TAB PO SCH (08:16)
[2023-04-28] MEDS: Polyethylene Glycol 3350 17 GM Packet PER TUBE SCH (08:16)
[2023-04-28] MEDS: Cyanocobalamin (Vitamin B-12) 1,000 MCG TAB PO SCH (08:16)
[2023-04-28] MEDS: Ranolazine 500 MG ER.TAB PO SCH ×2 (08:16→20:13)
[2023-04-28] MEDS: Vitamin E 400 UNITS CAP PO SCH (08:16)
[2023-04-28] MEDS: Famotidine 20 MG TAB PO SCH ×2 (08:17→20:13)
[2023-04-28] MEDS: Lisinopril 20 MG TAB PO SCH (08:17)
[2023-04-28] MEDS: Ferrous Gluconate 324 MG TAB PO SCH (08:17)
[2023-04-28] MEDS: Ascorbic Acid 500 mg Chewable Tablet PO SCH (08:17)
[2023-04-28] MEDS: COD LIVER OIL PO SCH (08:18)
[2023-04-28] MEDS: CHOLECALCIFEROL PO SCH (08:18)
[2023-04-28] MEDS: VITAMIN A PO SCH (08:18)
[2023-04-28] MEDS: VITAMIN B-COMPLEX PO SCH (08:19)
[2023-04-28] MEDS: Acetaminophen 325 MG TAB PO PRN (20:14)
[2023-04-29] MEDS: Polyethylene Glycol 3350 17 GM Packet PER TUBE SCH (08:21)
[2023-04-29] MEDS: Vitamin E 400 UNITS CAP PO SCH (08:22)
[2023-04-29] MEDS: Ferrous Gluconate 324 MG TAB PO SCH (08:22)
[2023-04-29] MEDS: Cholecalciferol (Vitamin D3) 400 UNITS TAB PO SCH (08:22)
[2023-04-29] MEDS: Lisinopril 20 MG TAB PO SCH (08:22)
[2023-04-29] MEDS: Famotidine 20 MG TAB PO SCH ×2 (08:22→20:08)
[2023-04-29] MEDS: Ranolazine 500 MG ER.TAB PO SCH ×2 (08:22→20:08)
[2023-04-29] MEDS: Cyanocobalamin (Vitamin B-12) 1,000 MCG TAB PO SCH (08:22)
[2023-04-29] MEDS: Ascorbic Acid 500 mg Chewable Tablet PO SCH (08:22)
[2023-04-29] MEDS: CHOLECALCIFEROL PO SCH (08:23)
[2023-04-29] MEDS: COD LIVER OIL PO SCH (08:23)
[2023-04-29] MEDS: VITAMIN B-COMPLEX PO SCH (08:23)
[2023-04-29] MEDS: VITAMIN A PO SCH (08:23)
[2023-04-29] MEDS: Acetaminophen 325 MG TAB PO PRN (20:08)
[2023-04-30] MEDS: Acetaminophen 325 MG TAB PO PRN (05:15)
[2023-04-30] MEDS: Polyethylene Glycol 3350 17 GM Packet PER TUBE SCH (08:37)
[2023-04-30] MEDS: Vitamin E 400 UNITS CAP PO SCH (08:37)
[2023-04-30] MEDS: Cholecalciferol (Vitamin D3) 400 UNITS TAB PO SCH (08:38)
[2023-04-30] MEDS: VITAMIN A PO SCH (08:38)
[2023-04-30] MEDS: Famotidine 20 MG TAB PO SCH ×2 (08:38→20:01)
[2023-04-30] MEDS: Ascorbic Acid 500 mg Chewable Tablet PO SCH (08:38)
[2023-04-30] MEDS: Ferrous Gluconate 324 MG TAB PO SCH (08:38)
[2023-04-30] MEDS: COD LIVER OIL PO SCH (08:38)
[2023-04-30] MEDS: Lisinopril 20 MG TAB PO SCH (08:38)
[2023-04-30] MEDS: Ranolazine 500 MG ER.TAB PO SCH ×2 (08:38→20:01)
[2023-04-30] MEDS: Cyanocobalamin (Vitamin B-12) 1,000 MCG TAB PO SCH (08:38)
[2023-04-30] MEDS: CHOLECALCIFEROL PO SCH (08:38)
[2023-04-30] MEDS: VITAMIN B-COMPLEX PO SCH (08:39)
[2023-05-01] MEDS: VITAMIN A PO SCH (08:22)
[2023-05-01] MEDS: COD LIVER OIL PO SCH (08:22)
[2023-05-01] MEDS: CHOLECALCIFEROL PO SCH (08:22)
[2023-05-01] MEDS: VITAMIN B-COMPLEX PO SCH (08:23)
[2023-05-01] MEDS: Ranolazine 500 MG ER.TAB PO SCH ×2 (08:25→20:37)
[2023-05-01] MEDS: Ascorbic Acid 500 mg Chewable Tablet PO SCH (08:25)
[2023-05-01] MEDS: Polyethylene Glycol 3350 17 GM Packet PER TUBE SCH (08:25)
[2023-05-01] MEDS: Ferrous Gluconate 324 MG TAB PO SCH (08:25)
[2023-05-01] MEDS: Vitamin E 400 UNITS CAP PO SCH (08:25)
[2023-05-01] MEDS: Cholecalciferol (Vitamin D3) 400 UNITS TAB PO SCH (08:25)
[2023-05-01] MEDS: Lisinopril 20 MG TAB PO SCH (08:26)
[2023-05-01] MEDS: Cyanocobalamin (Vitamin B-12) 1,000 MCG TAB PO SCH (08:26)
[2023-05-01] MEDS: Famotidine 20 MG TAB PO SCH ×2 (08:26→20:37)
[2023-05-01] MEDS: Acetaminophen 325 MG TAB PO PRN (20:31)
[2023-05-02] MEDS: VITAMIN B-COMPLEX PO SCH (08:54)
[2023-05-02] MEDS: CHOLECALCIFEROL PO SCH (08:55)
[2023-05-02] MEDS: COD LIVER OIL PO SCH (08:55)
[2023-05-02] MEDS: VITAMIN A PO SCH (08:55)
[2023-05-02] MEDS: Ranolazine 500 MG ER.TAB PO SCH ×2 (08:57→20:31)
[2023-05-02] MEDS: Ferrous Gluconate 324 MG TAB PO SCH (08:57)
[2023-05-02] MEDS: Cholecalciferol (Vitamin D3) 400 UNITS TAB PO SCH (08:57)
[2023-05-02] MEDS: Lisinopril 20 MG TAB PO SCH (08:57)
[2023-05-02] MEDS: Vitamin E 400 UNITS CAP PO SCH (08:57)
[2023-05-02] MEDS: Cyanocobalamin (Vitamin B-12) 1,000 MCG TAB PO SCH (08:59)
[2023-05-02] MEDS: Ascorbic Acid 500 mg Chewable Tablet PO SCH (08:59)
[2023-05-02] MEDS: Famotidine 20 MG TAB PO SCH ×2 (08:59→20:29)
[2023-05-02] MEDS: Polyethylene Glycol 3350 17 GM Packet PER TUBE SCH (09:00)
[2023-05-02] MEDS: Acetaminophen 325 MG TAB PO PRN ×2 (10:12→20:30)
[2023-05-03] MEDS: Acetaminophen 325 MG TAB PO PRN (06:25)
[2023-05-03] MEDS: Vitamin E 400 UNITS CAP PO SCH (08:50)
[2023-05-03] MEDS: Ascorbic Acid 500 mg Chewable Tablet PO SCH (08:50)
[2023-05-03] MEDS: Cyanocobalamin (Vitamin B-12) 1,000 MCG TAB PO SCH ×2 (08:50→08:58)
[2023-05-03] MEDS: Ranolazine 500 MG ER.TAB PO SCH ×2 (08:50→21:02)
[2023-05-03] MEDS: Cholecalciferol (Vitamin D3) 400 UNITS TAB PO SCH (08:50)
[2023-05-03] MEDS: Lisinopril 20 MG TAB PO SCH (08:50)
[2023-05-03] MEDS: Ferrous Gluconate 324 MG TAB PO SCH (08:51)
[2023-05-03] MEDS: Famotidine 20 MG TAB PO SCH ×2 (08:51→21:02)
[2023-05-03] MEDS: Polyethylene Glycol 3350 17 GM Packet PER TUBE SCH (08:51)
[2023-05-03] MEDS: VITAMIN B-COMPLEX PO SCH (08:59)
[2023-05-03] MEDS: COD LIVER OIL PO SCH (08:59)
[2023-05-03] MEDS: VITAMIN A PO SCH (08:59)
[2023-05-03] MEDS: CHOLECALCIFEROL PO SCH (08:59)
[2023-05-04 05:27] LABS: Hematocrit 34.3 % (36.0-47.0); Hemoglobin 10.6 g/dL (12.0-16.0); Platelet Count 250 10x3/uL (130-400)
[2023-05-04] MEDS: Cholecalciferol (Vitamin D3) 400 UNITS TAB PO SCH (08:12)
[2023-05-04] MEDS: Famotidine 20 MG TAB PO SCH ×2 (08:12→20:50)
[2023-05-04] MEDS: Ascorbic Acid 500 mg Chewable Tablet PO SCH (08:12)
[2023-05-04] MEDS: Vitamin E 400 UNITS CAP PO SCH (08:12)
[2023-05-04] MEDS: Ranolazine 500 MG ER.TAB PO SCH ×2 (08:12→20:50)
[2023-05-04] MEDS: Cyanocobalamin (Vitamin B-12) 1,000 MCG TAB PO SCH (08:12)
[2023-05-04] MEDS: Ferrous Gluconate 324 MG TAB PO SCH (08:12)
[2023-05-04] MEDS: Polyethylene Glycol 3350 17 GM Packet PER TUBE SCH (08:14)
[2023-05-04] MEDS: CHOLECALCIFEROL PO SCH (08:14)
[2023-05-04] MEDS: COD LIVER OIL PO SCH (08:14)
[2023-05-04] MEDS: VITAMIN B-COMPLEX PO SCH (08:14)
[2023-05-04] MEDS: Lisinopril 20 MG TAB PO SCH (08:14)
[2023-05-04] MEDS: VITAMIN A PO SCH (08:14)
[2023-05-05] MEDS: Polyethylene Glycol 3350 17 GM Packet PER TUBE SCH (08:18)
[2023-05-05] MEDS: Cholecalciferol (Vitamin D3) 400 UNITS TAB PO SCH (08:19)
[2023-05-05] MEDS: Ascorbic Acid 500 mg Chewable Tablet PO SCH (08:19)
[2023-05-05] MEDS: Ranolazine 500 MG ER.TAB PO SCH ×2 (08:19→20:26)
[2023-05-05] MEDS: Lisinopril 20 MG TAB PO SCH ×2 (08:19→08:21)
[2023-05-05] MEDS: Famotidine 20 MG TAB PO SCH ×2 (08:19→20:26)
[2023-05-05] MEDS: Vitamin E 400 UNITS CAP PO SCH (08:19)
[2023-05-05] MEDS: Cyanocobalamin (Vitamin B-12) 1,000 MCG TAB PO SCH (08:19)
[2023-05-05] MEDS: VITAMIN B-COMPLEX PO SCH (08:19)
[2023-05-05] MEDS: COD LIVER OIL PO SCH (08:20)
[2023-05-05] MEDS: VITAMIN A PO SCH (08:20)
[2023-05-05] MEDS: CHOLECALCIFEROL PO SCH (08:20)
[2023-05-05] MEDS: Ferrous Gluconate 324 MG TAB PO SCH (08:21)
[2023-05-06] MEDS: Acetaminophen 325 MG TAB PO PRN ×2 (05:53→21:17)
[2023-05-06] MEDS: CHOLECALCIFEROL PO SCH (08:23)
[2023-05-06] MEDS: Ranolazine 500 MG ER.TAB PO SCH ×2 (08:23→21:17)
[2023-05-06] MEDS: Ferrous Gluconate 324 MG TAB PO SCH (08:23)
[2023-05-06] MEDS: Ascorbic Acid 500 mg Chewable Tablet PO SCH (08:23)
[2023-05-06] MEDS: Lisinopril 20 MG TAB PO SCH (08:23)
[2023-05-06] MEDS: VITAMIN A PO SCH (08:23)
[2023-05-06] MEDS: VITAMIN B-COMPLEX PO SCH (08:23)
[2023-05-06] MEDS: Cholecalciferol (Vitamin D3) 400 UNITS TAB PO SCH (08:23)
[2023-05-06] MEDS: Cyanocobalamin (Vitamin B-12) 1,000 MCG TAB PO SCH (08:23)
[2023-05-06] MEDS: COD LIVER OIL PO SCH (08:23)
[2023-05-06] MEDS: Vitamin E 400 UNITS CAP PO SCH (08:23)
[2023-05-06] MEDS: Polyethylene Glycol 3350 17 GM Packet PER TUBE SCH (08:24)
[2023-05-06] MEDS: Famotidine 20 MG TAB PO SCH ×2 (08:24→21:17)
[2023-05-06] MEDS: Cyclobenzaprine 10 MG TAB PO PRN (21:18)
[2023-05-07] MEDS: Acetaminophen 325 MG TAB PO PRN ×2 (05:11→20:39)
[2023-05-07] MEDS: COD LIVER OIL PO SCH (09:11)
[2023-05-07] MEDS: CHOLECALCIFEROL PO SCH (09:11)
[2023-05-07] MEDS: VITAMIN A PO SCH (09:11)
[2023-05-07] MEDS: VITAMIN B-COMPLEX PO SCH (09:12)
[2023-05-07] MEDS: Lisinopril 20 MG TAB PO SCH (09:13)
[2023-05-07] MEDS: Famotidine 20 MG TAB PO SCH ×2 (09:13→20:39)
[2023-05-07] MEDS: Ranolazine 500 MG ER.TAB PO SCH ×2 (09:13→20:39)
[2023-05-07] MEDS: Ascorbic Acid 500 mg Chewable Tablet PO SCH (09:13)
[2023-05-07] MEDS: Ferrous Gluconate 324 MG TAB PO SCH (09:13)
[2023-05-07] MEDS: Polyethylene Glycol 3350 17 GM Packet PER TUBE SCH (09:13)
[2023-05-07] MEDS: Vitamin E 400 UNITS CAP PO SCH (09:13)
[2023-05-07] MEDS: Cyanocobalamin (Vitamin B-12) 1,000 MCG TAB PO SCH (09:13)
[2023-05-07] MEDS: Cholecalciferol (Vitamin D3) 400 UNITS TAB PO SCH (09:13)
[2023-05-08] MEDS: CHOLECALCIFEROL PO SCH (08:04)
[2023-05-08] MEDS: VITAMIN A PO SCH (08:04)
[2023-05-08] MEDS: COD LIVER OIL PO SCH (08:04)
[2023-05-08] MEDS: VITAMIN B-COMPLEX PO SCH (08:04)
[2023-05-08] MEDS: Ascorbic Acid 500 mg Chewable Tablet PO SCH (08:05)
[2023-05-08] MEDS: Vitamin E 400 UNITS CAP PO SCH (08:05)
[2023-05-08] MEDS: Ranolazine 500 MG ER.TAB PO SCH ×2 (08:05→21:26)
[2023-05-08] MEDS: Cholecalciferol (Vitamin D3) 400 UNITS TAB PO SCH (08:05)
[2023-05-08] MEDS: Lisinopril 20 MG TAB PO SCH (08:05)
[2023-05-08] MEDS: Ferrous Gluconate 324 MG TAB PO SCH (08:05)
[2023-05-08] MEDS: Cyanocobalamin (Vitamin B-12) 1,000 MCG TAB PO SCH (08:05)
[2023-05-08] MEDS: Famotidine 20 MG TAB PO SCH ×2 (08:05→21:27)
[2023-05-08] MEDS: Polyethylene Glycol 3350 17 GM Packet PER TUBE SCH (08:06)
[2023-05-08 12:24] VITALS: BMI 38.4
[2023-05-08] MEDS: Acetaminophen 325 MG TAB PO PRN (21:27)
[2023-05-08] MEDS: Benzonatate 100 MG CAP PO PRN (21:27)
[2023-05-08] MEDS: guaiFENesin ER 600 MG TAB PO PRN (21:27)
[2023-05-09] MEDS: Ranolazine 500 MG ER.TAB PO SCH ×2 (08:54→21:04)
[2023-05-09] MEDS: Ferrous Gluconate 324 MG TAB PO SCH (08:54)
[2023-05-09] MEDS: Cyanocobalamin (Vitamin B-12) 1,000 MCG TAB PO SCH (08:55)
[2023-05-09] MEDS: Vitamin E 400 UNITS CAP PO SCH (08:55)
[2023-05-09] MEDS: VITAMIN B-COMPLEX PO SCH (08:55)
[2023-05-09] MEDS: VITAMIN A PO SCH (08:55)
[2023-05-09] MEDS: COD LIVER OIL PO SCH (08:55)
[2023-05-09] MEDS: CHOLECALCIFEROL PO SCH (08:55)
[2023-05-09] MEDS: Famotidine 20 MG TAB PO SCH ×2 (08:55→21:04)
[2023-05-09] MEDS: Cholecalciferol (Vitamin D3) 400 UNITS TAB PO SCH (08:55)
[2023-05-09] MEDS: Lisinopril 20 MG TAB PO SCH (08:55)
[2023-05-09] MEDS: Ascorbic Acid 500 mg Chewable Tablet PO SCH (08:55)
[2023-05-09] MEDS: Polyethylene Glycol 3350 17 GM Packet PER TUBE SCH (08:59)
[2023-05-09] MEDS: guaiFENesin ER 600 MG TAB PO PRN (21:07)
[2023-05-09] MEDS: Benzonatate 100 MG CAP PO PRN (21:07)
[2023-05-10] MEDS: Cholecalciferol (Vitamin D3) 400 UNITS TAB PO SCH (08:19)
[2023-05-10] MEDS: Ascorbic Acid 500 mg Chewable Tablet PO SCH (08:19)
[2023-05-10] MEDS: Ranolazine 500 MG ER.TAB PO SCH ×2 (08:19→20:29)
[2023-05-10] MEDS: Famotidine 20 MG TAB PO SCH ×2 (08:19→20:29)
[2023-05-10] MEDS: VITAMIN B-COMPLEX PO SCH (08:19)
[2023-05-10] MEDS: Ferrous Gluconate 324 MG TAB PO SCH (08:19)
[2023-05-10] MEDS: Lisinopril 20 MG TAB PO SCH (08:19)
[2023-05-10] MEDS: Cyanocobalamin (Vitamin B-12) 1,000 MCG TAB PO SCH (08:19)
[2023-05-10] MEDS: COD LIVER OIL PO SCH (08:20)
[2023-05-10] MEDS: CHOLECALCIFEROL PO SCH (08:20)
[2023-05-10] MEDS: VITAMIN A PO SCH (08:20)
[2023-05-10] MEDS: Polyethylene Glycol 3350 17 GM Packet PER TUBE SCH (08:21)
[2023-05-10] MEDS: Vitamin E 400 UNITS CAP PO SCH (08:21)
[2023-05-10] MEDS: Acetaminophen 325 MG TAB PO PRN (08:24)
[2023-05-10] MEDS: Benzonatate 100 MG CAP PO PRN (20:31)
[2023-05-10] MEDS: guaiFENesin ER 600 MG TAB PO PRN (20:32)
[2023-05-11 06:02] LABS: Hemoglobin 10.9 g/dL (12.0-16.0); Platelet Count 192 10x3/uL (130-400)
[2023-05-11] MEDS: Vitamin E 400 UNITS CAP PO SCH (09:21)
[2023-05-11] MEDS: Ranolazine 500 MG ER.TAB PO SCH (09:21)
[2023-05-11] MEDS: Cholecalciferol (Vitamin D3) 400 UNITS TAB PO SCH (09:21)
[2023-05-11] MEDS: Ascorbic Acid 500 mg Chewable Tablet PO SCH (09:21)
[2023-05-11] MEDS: Cyanocobalamin (Vitamin B-12) 1,000 MCG TAB PO SCH (09:21)
[2023-05-11] MEDS: Lisinopril 20 MG TAB PO SCH (09:21)
[2023-05-11] MEDS: Ferrous Gluconate 324 MG TAB PO SCH (09:21)
[2023-05-11] MEDS: Famotidine 20 MG TAB PO SCH (09:21)
[2023-05-11] MEDS: VITAMIN A PO SCH (09:22)
[2023-05-11] MEDS: COD LIVER OIL PO SCH (09:22)
[2023-05-11] MEDS: VITAMIN B-COMPLEX PO SCH (09:22)
[2023-05-11] MEDS: Polyethylene Glycol 3350 17 GM Packet PER TUBE SCH (09:22)
[2023-05-11] MEDS: CHOLECALCIFEROL PO SCH (09:22)
[2023-05-11 09:23] VITALS: BP 142/73
[2023-05-11 11:02] VITALS: TEMP 97.7
== END 2023-05-11 12:55 | disposition home or self-care (01) | DRG 560 ==
LOC: MADMS 16:07
PROVIDERS: ADMIT Family Medicine; ATTEND Family Medicine
PROC: 0T9B70Z Drainage of Bladder with Drainage Device, Via Natural or Artificial Opening (ICD-10-PCS; principal; 2023-03-20)
DX: S72.92XD Unspecified fracture of left femur, subsequent encounter for closed fracture with routine healing (principal); N39.0 Urinary tract infection, site not specified; I10 Essential (primary) hypertension; I25.10 Atherosclerotic heart disease of native coronary artery without angina pectoris; G89.29 Other chronic pain; Z96.653 Presence of artificial knee joint, bilateral; Z66 Do not resuscitate; D64.9 Anemia, unspecified; R33.9 Retention of urine, unspecified; M10.9 Gout, unspecified; B96.20 Unspecified Escherichia coli [E. coli] as the cause of diseases classified elsewhere; Z79.899 Other long term (current) drug therapy; Z79.82 Long term (current) use of aspirin; Z88.0 Allergy status to penicillin; Z90.49 Acquired absence of other specified parts of digestive tract; Z90.710 Acquired absence of both cervix and uterus; Z95.5 Presence of coronary angioplasty implant and graft; Z97.8 Presence of other specified devices
CPT/HCPCS: 36415; 80048; 81001; 82565; 85014; 85018; 85025; 85027; 85049; 87077; 87086; 87186; 90471; 90694; G0008; J1650; J7512; Q0162

== ENCOUNTER 2024-03-04 06:56 | Emergency (ER) | payer MEDICARE ==
[2024-03-04] MEDS ORDERED: Clindamycin 150 MG CAP ONE (07:31)
[2024-03-04] MEDS ORDERED: Ibuprofen 600 MG TAB ONE (07:31)
[2024-03-04] MEDS ORDERED: HYDROcodone/Acetaminophen 5/325 mg Tablet ONE (07:32)
== END 2024-03-04 08:16 | disposition home or self-care (01) ==
LOC: MADERS 06:56
DX: R11.0 Nausea (principal); I10 Essential (primary) hypertension; T36.8X5A Adverse effect of other systemic antibiotics, initial encounter
CPT/HCPCS: 71045